=== PATIENT | male | born 1960 | race Caucasian/White ===

== ENCOUNTER 2020-01-03 05:37 | Inpatient (IN) | payer MEDICAID ==
[2020-01-03] VITALS (7 sets, daily range): BP systolic 135–155; BP diastolic 70–105
[~2020-01-03] VITALS: Ht 172.7 cm; Wt 76.2 kg
--- NOTE | 2020-01-03 05:40 | NUR ---
ED Nurse Note: pt presents to ed via [facility] from [facility] for SOB. Pt has trach and vent. PER EMS, pt had 400 mL of fluid suctioned at SNF. Pt rectal temp at triage 101.7. AAOx4, nonambulatory, nonverbal. ERMD at bedside, RT at bedside.
--- NOTE | 2020-01-03 05:44 | Emergency Room Report ---
History of Present Illness General Source: Medical Record, EMS (Froylan Rangel MD) Present Illness HPI This is a 59-year-old male with history of respiratory failure with tracheostomy. He presents with chief complaint of fever and respiratory distress. Per EMS, 911 was called because patient was hypoxic and had respiratory distress. Nursing staff suction him and there was copious amount of purulent secretion. Better after suctioning. Patient was placed on oxygen and brought here. He also had a fever. Onset today. No nausea vomiting or diarrhea. History is limited because of patient condition. (Froylan Rangel MD) Allergies: Coded Allergies: No Known Allergies (Unverified , 01/03/20) COVID-19 Screening Contact w/high risk pt: Yes Recent Travel to affected area: No Experienced COVID-19 symptoms?: Yes (Froylan Rangel MD) Patient History Past Medical History: see triage record, old chart reviewed Past Surgical History: other Pertinent Family History: none Social History: Denies: smoking Immunizations: other Reviewed Nursing Documentation: PMH: Agreed; PSxH: Agreed (Froylan Rangel MD) Review of Systems Constitutional: Reports: fever Eye: Denies: eye pain, blurred vision ENT: Denies: ear pain, nose congestion, throat swelling Respiratory: Reports: cough, shortness of breath Cardiovascular: Denies: chest pain, palpitations Gastrointestinal: Denies: abdominal pain, diarrhea, nausea, vomiting Musculoskeletal: Denies: back pain, joint pain Skin: Denies: rash Neurological: Denies: headache, numbness Endocrine: Denies: increased thirst, increased urine Hematologic/Lymphatic: Denies: easy bruising All Other Systems: negative except mentioned in HPI (Froylan Rangel MD) Physical Exam Vitals with fever Sp02 EP Interpretation: reviewed, abnormal General Appearance: well appearing, alert, moderate distress Head: normocephalic, atraumatic Eyes: bilateral eye PERRL, bilateral eye EOMI ENT: hearing grossly normal, normal pharynx Neck: full range of motion, supple, no meningismus Respiratory: chest non-tender, decreased breath sounds, accessory muscle use, rhonchi Cardiovascular #1: regular rate, rhythm, no murmur Gastrointestinal: normal bowel sounds, non tender, no mass, no organomegaly, no bruit, non-distended, other - G-tube Musculoskeletal: back normal, normal range of motion Psychiatric: mood/affect normal (Froylan Rangel MD) Medical Decision Making Diagnostic Impression: Primary Impression: Respiratory failure with hypoxia Qualified Codes: J96.21 - Acute and chronic respiratory failure with hypoxia Additional Impressions: Sepsis Qualified Codes: A41.9 - Sepsis, unspecified organism; R65.20 - Severe sepsis without septic shock; J96.01 - Acute respiratory failure with hypoxia HCAP (healthcare-associated pneumonia) Suspected COVID-19 virus infection UTI (urinary tract infection) Qualified Codes: N30.00 - Acute cystitis without hematuria ER Course Presents with respiratory distress secondary to pneumonia and sepsis. With fever and being [facility] patient, symptoms concerning for COVID-19 section. Culture sent for it. Wide spectrum antibiotics given. Will admit for further work-up. (Froylan Rangel MD) Laboratory Tests Test 01/03/20 05:55 01/03/20 06:00 Urine Color Yellow Urine Appearance Clear Urine pH 6 (4.5-8.0) Urine Specific Onyx 1.015 (1.005-1.035) Urine Protein 3+ (NEGATIVE) H Urine Glucose (UA) Negative (NEGATIVE) Urine Ketones 1+ (NEGATIVE) H Urine Blood 3+ (NEGATIVE) H Urine Nitrite Negative (NEGATIVE) Urine Bilirubin Negative (NEGATIVE) Urine Urobilinogen 1 MG/DL (0.0-1.0) H Urine Leukocyte Esterase 1+ (NEGATIVE) H Urine RBC 10-15 /HPF (0 - 0) H Urine WBC 5-10 /HPF (0 - 0) H Urine Squamous Epithelial Cells Few /LPF (NONE/OCC) Urine Amorphous Sediment Few /LPF (NONE) H Urine Bacteria Few /HPF (NONE) White Blood Count 46.9 K/UL (4.8-10.8) *H Red Blood Count 3.79 M/UL (4.70-6.10) L Hemoglobin 11.2 G/DL (14.2-18.0) L Hematocrit 33.2 % (42.0-52.0) L Mean Corpuscular Volume 88 FL (80-99) Mean Corpuscular Hemoglobin 29.6 PG (27.0-31.0) Mean Corpuscular Hemoglobin Concent 33.7 G/DL (32.0-36.0) Red Cell Distribution Width 13.1 % (11.6-14.8) Platelet Count 542 K/UL (150-450) H Mean Platelet Volume 5.5 FL (6.5-10.1) L Neutrophils (%) (Auto) % (45.0-75.0) Lymphocytes (%) (Auto) % (20.0-45.0) Monocytes (%) (Auto) % (1.0-10.0) Eosinophils (%) (Auto) % (0.0-3.0) Basophils (%) (Auto) % (0.0-2.0) Differential Total Cells Counted 100 Neutrophils % (Manual) 86 % (45-75) H Lymphocytes % (Manual) 3 % (20-45) L Monocytes % (Manual) 5 % (1-10) Eosinophils % (Manual) 1 % (0-3) Basophils % (Manual) 1 % (0-2) Band Neutrophils 4 % (0-8) Platelet Estimate Increased H Platelet Morphology Normal Sodium Level 141 MMOL/L (136-145) Potassium Level 3.9 MMOL/L (3.5-5.1) Chloride Level 102 MMOL/L (98-107) Carbon Dioxide Level 25 MMOL/L (21-32) Anion Gap 14 mmol/L (5-15) Blood Urea Nitrogen 18 mg/dL (7-18) Creatinine 0.8 MG/DL (0.55-1.30) Estimated Glomerular Filtration Rate > 60 mL/min (>60) Glucose Level 166 MG/DL (74-106) H Lactic Acid Level 1.70 mmol/L (0.4-2.0) Calcium Level 11.1 MG/DL (8.5-10.1) H Total Bilirubin 0.3 MG/DL (0.2-1.0) Aspartate Amino Transferase (AST) 13 U/L (15-37) L Alanine Aminotransferase (ALT) 19 U/L (12-78) Alkaline Phosphatase 105 U/L (46-116) Total Creatine Kinase 45 U/L (26-308) Creatine Kinase MB 0.8 NG/ML (0.0-3.6) Creatine Kinase MB Relative Index 1.7 Troponin I 0.021 ng/mL (0.000-0.056) Total Protein 8.4 G/DL (6.4-8.2) H Albumin 2.9 G/DL (3.4-5.0) L Globulin 5.5 g/dL Albumin/Globulin Ratio 0.5 (1.0-2.7) L Microbiology Date/Time Source Procedure Growth Status 01/03/20 06:00 Nasal Nares - Final Complete 01/03/20 06:00 Nasal Nares - Final Complete (Joshua Mullins MD) EKG Diagnostic Results Rate: tachycardiac Rhythm: NSR ST Segments: other - NSST changes (Froylan Rangel MD) Rhythm Strip Diag. Results EP Interpretation: yes Rate: 110 Rhythm: NSR, no PVC's, no ectopy (Froylan Rangel MD) Chest X-Ray Diagnostic Results Chest X-Ray Diagnostic Results : Chest X-Ray Ordered: Yes # of Views/Limited/Complete: 1 View Indication: Shortness of Breath EP Interpretation: Yes Interpretation: no consolidation, no effusion, no pneumothorax, other - Left -sided pulmonary congestion Impression: Other - Left-sided congestion/atelectasis Electronically Signed by: Electronically signed by Dr. Joshua Mullins (Joshua Mullins MD) Status: improved (Froylan Rangel MD) Reevaluation Time: 09:00 Reevaluation Impression Labs show significantly elevated white count with neutrophil predominance and lymphopenia. Patient receiving broad-spectrum antibiotics. No obvious consolidation on chest x-ray however there is atelectasis and pulmonary congestion. Chemistry largely within normal limits, lactate within normal limits. Urine concerning for an acute urinary tract infection. Will admit to her PMD, Dr. Pereira, with respiratory isolation precautions. (Joshua Mullins MD) Disposition: ADMITTED INPATIENT Condition: Serious Froylan Rangel MD Jan 03, 2020 05:44 Joshua Mullins MD Jan 03, 2020 13:49
[2020-01-03] MEDS ORDERED: Cefepime HCl 1 GM in D5W 55 ML IVPB ONE (05:45)
[2020-01-03] MEDS ORDERED: Acetaminophen 500mg (ES) tab ORAL ONE (05:45)
[2020-01-03] MEDS ORDERED: Albuterol ud Inhalation HHN ONE (05:45)
--- NOTE | 2020-01-03 05:50 | NUR ---
Rickey gonzalez in EDM - 01/03/20 at 0617 by [email or web address] ED Nurse Note: rt at bedside for xr
--- NOTE | 2020-01-03 05:50 | NUR ---
ED Nurse Note: rt at bedside for vent placement.
--- NOTE | 2020-01-03 06:00 | NUR ---
ED Nurse Note: blood, urine, flu swab, covid swab collected and sent to lab
[2020-01-03 06:08] LABS: HEMATOCRIT 33.2 % (42.0-52.0); HEMOGLOBIN 11.2 G/DL (14.2-18.0); MEAN CORPUSCULAR VOLUME 88 FL (80-99); PLATELET COUNT 542 K/UL (150-450); RED BLOOD COUNT 3.79 M/UL (4.70-6.10); RED CELL DISTRIBUTION WIDTH 13.1 % (11.6-14.8)
--- NOTE | 2020-01-03 06:10 | NUR ---
ED Nurse Note: xr at bedside
[2020-01-03] MEDS ORDERED: ASPIR 8181 MG GT (06:15)
[2020-01-03 06:18] LABS: ANION GAP 14 mmol/L (5-15); BLOOD UREA NITROGEN 18 mg/dL (7-18); CALCIUM 11.1 MG/DL (8.5-10.1); CARBON DIOXIDE 25 MMOL/L (21-32); CHLORIDE 102 MMOL/L (98-107); CREATININE 0.8 MG/DL (0.55-1.30); POTASSIUM 3.9 MMOL/L (3.5-5.1); SODIUM 141 MMOL/L (136-145)
[2020-01-03] MEDS ORDERED: TYLENOL EXTRA500 MG GT ×2 (06:19→09:50)
[2020-01-03] MEDS ORDERED: ATROVENT HFA12.9 GM IH (06:19)
[2020-01-03] MEDS ORDERED: ATORVASTATIN CA20 MG GT (06:19)
[2020-01-03] MEDS ORDERED: CLOZAPINE200 MG GT (06:19)
[2020-01-03] MEDS ORDERED: ATROPINE 0.1 MG/ML BC (06:19)
[2020-01-03] MEDS ORDERED: COLACE100 MG GT (06:19)
[2020-01-03] MEDS ORDERED: CHOLECALCIFEROL1 G1 GT (06:19)
[2020-01-03] MEDS ORDERED: VALPROIC A250 MG/5 M PO (06:19)
[2020-01-03 06:23] LABS: WHITE BLOOD COUNT 46.9 K/UL (4.8-10.8)
[2020-01-03 06:31] LABS: ALANINE AMINOTRANSFERASE 19 U/L (12-78); ALBUMIN 2.9 G/DL (3.4-5.0); ALBUMIN/GLOBULIN RATIO 0.5 (1.0-2.7); ALKALINE PHOSPHATASE 105 U/L (46-116); ASPARTATE AMINO TRANSFERASE 13 U/L (15-37); BILIRUBIN,TOTAL 0.3 MG/DL (0.2-1.0); CKMB 0.8 NG/ML (0.0-3.6); CREATINE KINASE 45 U/L (26-308)
[2020-01-03 06:43] LABS: APPEARANCE,URINE CLEAR; BILIRUBIN, URINE NEGATIVE (NEGATIVE); GLUCOSE, URINE (UA) NEGATIVE (NEGATIVE); KETONES,URINE 1+ (NEGATIVE); LEUKOCYTE ESTERASE ,URINE 1+ (NEGATIVE); NITRITE,URINE NEGATIVE (NEGATIVE); PH,URINE 6 (4.5-8.0); PROTEIN,URINE 3+ (NEGATIVE); UROBILINOGEN,URINE 1 MG/DL (0.0-1.0)
[2020-01-03 06:54] LABS: COLOR,URINE YELLOW
--- NOTE | 2020-01-03 07:14 | NUR ---
HAND-OFF: Report given to Amee SMITH. Endorsed plan of care
--- NOTE | 2020-01-03 07:30 | NUR ---
RESPIRATORY NOTE: Changed the vent settings to AC 16-600ml-40%FiO2- peep 5 due to resp distress. Pt was retracting/ labored/ abdominal breathing on SIMV 10-600ml-40%- peep 5. Pt is calming down, tolerating well with the new settings.No resp distress after vent changed. RN Amee made aware. Will continue to monitor.
[2020-01-03] MEDS ORDERED: VALPROIC A250 MG/5 M GT (09:50)
[2020-01-03] MEDS ORDERED: CLOZAPINE200 MG PO (09:50)
--- NOTE | 2020-01-03 10:32 | Diagnostic Imaging Report ---
Indication: Dyspnea Comparison: None A single view chest radiograph was obtained. Findings: Mild platelike atelectasis demonstrated at the left lung base. Heart size is normal. Lung volumes are low. Tracheostomy noted. Bones are osteopenic. IMPRESSION: Minimal left basal atelectasis.
[2020-01-03] MEDS ORDERED: Acetaminophen 500mg (ES) tab ORAL PRN (11:00)
--- NOTE | 2020-01-03 13:06 | NUR ---
*-* INSURANCE *-* [facility] NCM:MARICEL P: [phone] EXT. [id number] F: [phone] Addendum: 01/06/20 at 0923 by BRANDY ALVAREZ CM REF# [id number]
--- NOTE | 2020-01-03 13:08 | NUR ---
*-* PLEASE CALL INSURANCE COMPANY ONCE COVID 19 RESULTS ARE IN THEY NEED TO REPORT IT TO THE STATE *-*
--- NOTE | 2020-01-03 17:36 | NUR ---
ED Nurse Note: Report given to Zuly SMITH.
--- NOTE | 2020-01-03 18:55 | NUR ---
NEW ADMISSION, RECVD PT Pt arrived via hospital bed. RT placed trach pt on Vent. Vent Setting are ordered by Dr Pereira, Pt came from [facility] and was swabbed by ER. Swabs pending. Pt has Right AC 20g SL. Admitting Dr michael Pereira and Dx: PNA. VS upon arrival 164/74, HR 120, RR 16, 98% on mechanical ventilator. Upon transferring pt, pt has large bowel movement, no diarrhea, PT abdomen looks distended and pt has G tube that is clamped. threat monitoring analyst was placed on pt, tech notified. Pt had an episode of coffee ground emesis. Will endorse admission to [facility] RN
[2020-01-04] VITALS: BP 144/93
--- NOTE | 2020-01-04 01:25 | Diagnostic Imaging Report ---
EXAM: XR Chest, 1 View CLINICAL HISTORY: COUGH TECHNIQUE: Frontal view of the chest. COMPARISON: 01/03/2020. FINDINGS: Lungs: There is decreased inspiratory effort with clear right lung parenchyma. There is subtle density suggestive of infiltrate with superimposed atelectasis within the lingular lobe, slightly improving in the interval. Remainder of the lung jesus are clear. Pleural space: Unremarkable. No pneumothorax. Heart: Unremarkable. No cardiomegaly. Mediastinum: Unremarkable. Bones/joints: Degenerative disease of the spine. Tubes, lines and devices: There is an endotracheal tube with the tip 4 cm above elisabeth. Upper abdomen: Abundant fecal debris in the colon which may indicate constipation. IMPRESSION: Slightly improved the infiltrate within the lingular lobe.
[2020-01-04 04:00] VITALS: BP 138/78
[2020-01-04] MEDS ORDERED: Cefepime HCl 1 GM in D5W 55 ML IVPB SCH (06:00)
--- NOTE | 2020-01-04 07:14 | Pulmonolgy Critical Care Note ---
Critical Care - Asmt/Plan Problems: (1) Sepsis (2) HCAP (healthcare-associated pneumonia) (3) Suspected COVID-19 virus infection (4) Chronic respiratory failure (5) Paraplegia (6) Feeding by G-tube Respiratory: monitor respiratory rate, adjust FIO2, CXR Cardiac: continue to monitor HR/BP Renal: F/U I&O, decrease IV fluid - to 50 cc/hour Infectious Disease: check cultures, continue antibiotics Gastrointestinal: start feedings Endocrine: monitor blood sugar Hematologic: monitor H/H, transfuse if hgb<8.5 Neurologic: keep patient comfortable Disposition: keep in ICU Notes Reviewed: other - ER and paramedics note. Discussed with: rn case mgrbiodiesel product manager - Objective Last 24 Hour Vital Signs Date Time Temp Pulse Resp B/P (MAP) Pulse Ox O2 Delivery O2 Flow Rate FiO2 01/04/20 05:24 101 25 40 01/04/20 04:00 40 01/04/20 04:00 98.9 102 20 138/78 (98) 96 01/04/20 04:00 102 01/04/20 03:25 102 16 40 01/04/20 01:16 106 20 40 01/04/20 00:00 40 01/04/20 00:00 105 01/04/20 00:00 99.3 105 21 144/93 (110) 95 01/03/20 23:52 104 16 40 01/03/20 21:00 105 19 40 01/03/20 20:08 Mechanical Ventilator 01/03/20 20:00 99.0 108 19 155/105 (122) 98 01/03/20 20:00 104 01/03/20 19:17 112 14 40 01/03/20 18:07 101.0 72 18 13/72 100 Mechanical Ventilator 40 01/03/20 17:37 101.0 81 16 135/76 100 Mechanical Ventilator 40 01/03/20 17:15 100 16 40 01/03/20 15:04 106 24 40 01/03/20 14:10 101.9 87 16 147/77 100 Mechanical Ventilator 40 01/03/20 12:30 104 25 40 01/03/20 12:05 101.9 80 16 143/72 100 Mechanical Ventilator 40 01/03/20 10:43 104 29 40 01/03/20 10:00 101.9 89 16 137/78 100 Mechanical Ventilator 40 01/03/20 08:40 107 23 40 01/03/20 07:43 101.9 82 14 149/70 100 Mechanical Ventilator 40 01/03/20 07:30 103 24 40 Status: awake Condition: critical, grave HEENT: atraumatic Neck: full ROM Heart: HR/BP stable, regular Abdomen: non-tender, active bowel sounds Extremities: no C/C/E Micro: Microbiology Date/Time Source Procedure Growth Status 01/03/20 06:00 Nasal Nares - Final Complete 01/03/20 06:00 Nasal Nares - Final Complete 01/03/20 05:35 Rectum Received Critical Care - Subjective ROS Limited/Unobtainable: Yes Interval Events: 59-year-old male with history of chronic respiratory failure with tracheostomy, PEG, paraplegia, [facility] resident presented with chief complaint of fever and respiratory distress. patient was hypoxic and had respiratory distress. Nursing staff suction him and there was copious amount of purulent secretion. Better after suctioning. Patient was placed on oxygen and brought here. He also had a fever. Onset today. Initial CXR was negative for any infiltrate, but his WBC was 49 on admission. Condition: critical FI02: 40 Vent Support Breath Rate: 16 Vent Support Mode: AC Vent Tidal Volume: 600 Sputum Amount: Moderate PEEP: 5.0 PIP: 15 CXR: trach in place. LYRIC Labs: Laboratory Tests Test 01/04/20 05:30 White Blood Count Pending Red Blood Count Pending Hemoglobin Pending Hematocrit Pending Mean Corpuscular Volume Pending Mean Corpuscular Hemoglobin Pending Mean Corpuscular Hemoglobin Concent Pending Red Cell Distribution Width Pending Platelet Count Pending Mean Platelet Volume Pending Neutrophils (%) (Auto) Pending Lymphocytes (%) (Auto) Pending Monocytes (%) (Auto) Pending Eosinophils (%) (Auto) Pending Basophils (%) (Auto) Pending Prothrombin Time Pending Prothromb Time International Ratio Pending Activated Partial Thromboplast Time Pending Sodium Level Pending Potassium Level Pending Chloride Level Pending Carbon Dioxide Level Pending Blood Urea Nitrogen Pending Creatinine Pending Estimat Glomerular Filtration Rate Pending Glucose Level Pending Calcium Level Pending Aspartate Amino Transf (AST/SGOT) Pending Alanine Aminotransferase (ALT/SGPT) Pending Pro-B-Type Natriuretic Peptide Pending Pola Goode MD Jan 04, 2020 07:14
[2020-01-04 07:29] LABS: ANION GAP 11 mmol/L (5-15); ASPARTATE AMINO TRANSFERASE 15 U/L (15-37); BLOOD UREA NITROGEN 21 mg/dL (7-18); CALCIUM 10.6 MG/DL (8.5-10.1); CARBON DIOXIDE 25 MMOL/L (21-32); CHLORIDE 103 MMOL/L (98-107); CREATININE 0.5 MG/DL (0.55-1.30); POTASSIUM 3.2 MMOL/L (3.5-5.1); SODIUM 139 MMOL/L (136-145)
[2020-01-04 07:30] LABS: HEMATOCRIT 27.9 % (42.0-52.0); HEMOGLOBIN 9.8 G/DL (14.2-18.0); MEAN CORPUSCULAR VOLUME 87 FL (80-99); PLATELET COUNT 430 K/UL (150-450); RED BLOOD COUNT 3.19 M/UL (4.70-6.10); RED CELL DISTRIBUTION WIDTH 12.9 % (11.6-14.8)
--- NOTE | 2020-01-04 07:30 | NUR ---
NURSE NOTES: Received report from Lee SMITH.
[2020-01-04 07:34] LABS: ALANINE AMINOTRANSFERASE 14 U/L (12-78)
[2020-01-04 07:43] LABS: WHITE BLOOD COUNT 34.4 K/UL (4.8-10.8)
[2020-01-04 07:49] LABS: INR 1.2 (0.9-1.1)
[2020-01-04 08:00] VITALS: BP 159/90
[2020-01-04] MEDS: Valproic Acid 250mg/5ml Liquid GT SCH (08:58)
--- NOTE | 2020-01-04 09:00 | NUR ---
NURSE NOTES: Pt. in bed, awake, alert, mouthing words. Pt. using pen/paper to be able to communicate. Pt. wrote he likes "soda", told him we are going to ask for S.T to see him first. For now he is NPO. No sign of distress. On mech. vent. AC16/VT600/Fi O2 40%/P5. IV at left AC #20g. in placed patent/intact running NS at 50cc/hr. Bed in low position, locked. Call light within reach. Will cont. to monitor.
--- NOTE | 2020-01-04 13:27 | NUR ---
NURSE NOTES: Called Dr. Goode and left a message regarding K+ 3.2 awaiting for response.
[2020-01-04 16:00] VITALS: BP 146/92
--- NOTE | 2020-01-04 16:08 | NUR ---
NURSE NOTES: Called Dr. Pereira and left message regarding his K+ 3.2 awaiting for response.
--- NOTE | 2020-01-04 16:22 | Infectious Diseases Prog Note ---
Subjective Allergies: Coded Allergies: No Known Allergies (Unverified , 01/03/20) Subjective # [id number] Objective Vital Signs Last 24 Hour Vital Signs Date Time Temp Pulse Resp B/P (MAP) Pulse Ox O2 Delivery O2 Flow Rate FiO2 01/04/20 15:25 100 16 40 01/04/20 13:25 98 17 40 01/04/20 12:00 40 01/04/20 11:40 105 01/04/20 10:56 99 17 40 01/04/20 10:22 100 16 40 01/04/20 09:00 Mechanical Ventilator 01/04/20 08:00 97.8 99 20 159/90 (113) 96 01/04/20 08:00 40 01/04/20 07:48 100 01/04/20 06:59 102 22 40 01/04/20 05:24 101 25 40 01/04/20 04:00 40 01/04/20 04:00 98.9 102 20 138/78 (98) 96 01/04/20 04:00 102 01/04/20 03:25 102 16 40 01/04/20 01:16 106 20 40 01/04/20 00:00 40 01/04/20 00:00 105 01/04/20 00:00 99.3 105 21 144/93 (110) 95 01/03/20 23:52 104 16 40 01/03/20 21:00 105 19 40 01/03/20 20:08 Mechanical Ventilator 01/03/20 20:00 99.0 108 19 155/105 (122) 98 01/03/20 20:00 104 01/03/20 19:17 112 14 40 01/03/20 18:07 101.0 72 18 13/72 100 Mechanical Ventilator 40 01/03/20 17:37 101.0 81 16 135/76 100 Mechanical Ventilator 40 01/03/20 17:15 100 16 40 Height (Feet): 5 Height (Inches): 8.00 Weight (Pounds): 170 Microbiology Date/Time Source Procedure Growth Status 01/03/20 06:00 Nasal Nares - Final Complete 01/03/20 06:00 Nasal Nares - Final Complete 01/03/20 05:35 Rectum Received Laboratory Tests Test 01/04/20 05:30 White Blood Count 34.4 K/UL (4.8-10.8) *H Red Blood Count 3.19 M/UL (4.70-6.10) L Hemoglobin 9.8 G/DL (14.2-18.0) L Hematocrit 27.9 % (42.0-52.0) L Mean Corpuscular Volume 87 FL (80-99) Mean Corpuscular Hemoglobin 30.6 PG (27.0-31.0) Mean Corpuscular Hemoglobin Concent 35.1 G/DL (32.0-36.0) Red Cell Distribution Width 12.9 % (11.6-14.8) Platelet Count 430 K/UL (150-450) Mean Platelet Volume 5.4 FL (6.5-10.1) L Neutrophils (%) (Auto) % (45.0-75.0) Lymphocytes (%) (Auto) % (20.0-45.0) Monocytes (%) (Auto) % (1.0-10.0) Eosinophils (%) (Auto) % (0.0-3.0) Basophils (%) (Auto) % (0.0-2.0) Differential Total Cells Counted 100 Neutrophils % (Manual) 90 % (45-75) H Lymphocytes % (Manual) 8 % (20-45) L Monocytes % (Manual) 2 % (1-10) Eosinophils % (Manual) 0 % (0-3) Basophils % (Manual) 0 % (0-2) Band Neutrophils 0 % (0-8) Platelet Estimate Adequate Platelet Morphology Normal Hypochromasia 1+ Prothrombin Time 12.6 SEC (9.30-11.50) H Prothromb Time International Ratio 1.2 (0.9-1.1) H Activated Partial Thromboplast Time 34 SEC (23-33) H Sodium Level 139 MMOL/L (136-145) Potassium Level 3.2 MMOL/L (3.5-5.1) L Chloride Level 103 MMOL/L (98-107) Carbon Dioxide Level 25 MMOL/L (21-32) Anion Gap 11 mmol/L (5-15) Blood Urea Nitrogen 21 mg/dL (7-18) H Creatinine 0.5 MG/DL (0.55-1.30) L Estimat Glomerular Filtration Rate > 60 mL/min (>60) Glucose Level 108 MG/DL (74-106) H Calcium Level 10.6 MG/DL (8.5-10.1) H Aspartate Amino Transf (AST/SGOT) 15 U/L (15-37) Alanine Aminotransferase (ALT/SGPT) 14 U/L (12-78) Pro-B-Type Natriuretic Peptide 493 pg/mL (0-125) H Current Medications Medications (Trade) Dose Ordered Sig/Emmanuelle Route PRN Reason Start Time Stop Time Status Last Admin Dose Admin Acetaminophen (Tylenol) 500 mg Q6H PRN ORAL Mild Pain/Temp > 100.5 01/03/20 11:00 02/02/20 10:59 Cefepime HCl 1 gm/ Dextrose 55 ml @ 110 mls/hr Q12H IVPB 01/04/20 18:00 01/11/20 17:59 Clozapine (Clozaril) 200 mg DAILY ORAL 01/04/20 09:00 01/11/20 08:59 01/04/20 08:58 Levofloxacin 100 ml @ 100 mls/hr Q24H IVPB 01/04/20 06:00 01/11/20 05:59 01/04/20 06:00 Sodium Chloride 1,000 ml @ 50 mls/hr Q20H IV 01/04/20 08:00 02/03/20 07:59 01/04/20 08:58 Valproic Acid (Depakene) 250 mg DAILY GT 01/04/20 09:00 02/03/20 08:59 01/04/20 08:58 Tarik Murdock MD Jan 04, 2020 16:22
--- NOTE | 2020-01-04 18:20 | NUR ---
NURSE NOTES: Received T.O from Dr. Pereira for K+ 40meq x 1 via GT and BMP in AM.
[2020-01-04] MEDS: Vancomycin 1gm/D5W 275ml IVPB SCH ×2 (18:37)
[2020-01-04] MEDS: Cefepime HCl 1 GM in D5W 55 ML IVPB SCH (18:39)
--- NOTE | 2020-01-04 19:39 | NUR ---
HAND-OFF: Report given to Corey SMITH. Pt. remain stable.
[2020-01-04 20:00] VITALS: BP 135/85
--- NOTE | 2020-01-04 20:00 | NUR ---
NURSE NOTES: SBAR from Missy SMITH. Patient AAOX3-4 able to mouth words. Pt. using pen/paper to be able to communicate. Patient is receiving Jevity at 30ml/hr via GT. No sign of distress. On mech. vent. Portex 8. AC16/VT600/Fi O2 40%/P5. IV at left AC #20g. in placed patent/intact running NS at 50cc/hr. Bed in low position, locked. Call light within reach. Will cont. to monitor
--- NOTE | 2020-01-04 23:45 | Consultation ---
DATE OF CONSULTATION: 01/04/2020 INFECTIOUS DISEASE CONSULT CONSULTING PHYSICIAN: Tarik Murdock M.D. REFERRING PHYSICIAN: Dr. Goode. REASON FOR CONSULTATION: Evaluation of the patient for pneumonia, rule out COVID-19. HISTORY OF PRESENT ILLNESS: The patient is a 59-year-old unfortunate male with multiple medical problems, who was transferred to this medical center due to respiratory distress and hypoxemia. The patient was admitted with impression of pneumonia and rule out probable COVID-19. The patient has been started on IV antibiotics. Infectious disease consultation has been requested for further evaluation of the patient and antibiotic management. PAST MEDICAL HISTORY: 1. Paraplegia. 2. History of ventilator-dependent respiratory failure. 3. Status post trach, status post PEG. ALLERGIES: No known drug allergies. SOCIAL HISTORY: The patient lives in [facility]. MEDICATION: Intravenous cefepime and Levaquin. FAMILY HISTORY: Not contributing. REVIEW OF SYSTEMS: Limited. Much of the information I was able to gather as mentioned above. PHYSICAL EXAMINATION: VITAL SIGNS: Temperature 101.9 at the time of admission, blood pressure 159/90. HEENT: No pale conjunctivae. No icterus. NECK: No lymphadenopathy. CHEST: Coarse breathing sounds. HEART: S1 and S2. ABDOMEN: Soft. EXTREMITY: No cyanosis at this time. SKIN: No rash. LABORATORY AND DIAGNOSTIC DATA: White blood cells 34, hemoglobin 9.8, platelets 430. UA, 5 to 10 white blood cells. BUN 31 and creatinine 0.1. ALT, AST, and alkaline phosphatase unremarkable. Chest x-ray shows suggestive of pneumonia, slight atelectasis of the left base. ASSESSMENT: The patient is a 59-year-old male with: 1. Sepsis. 2. Pneumonia. 3. Fever. 4. Leukocytosis. 5. Rule out probable COVID-19. 6. Rule out probable urinary tract infection. PLAN: 1. We will continue the patient on Levaquin and cefepime, add vancomycin. 2. Monitor CBC. 3. Monitor BMP. 4. Monitor cultures (blood, urine, sputum). 5. Monitor chest x-ray. 6. COVID-19. 7. Based on the patient's clinical course and labs, we will do further recommendations. Thank you, Dr. Goode, for allowing me to participate in the care of this patient. I will follow the patient with you during this hospitalization. Tarik Murdock M.D. DR: STEVEN JOB#: [id number] CC:
[2020-01-05] VITALS: BP 129/75
--- NOTE | 2020-01-05 | NUR ---
NURSE NOTES: Patient remains in bed and afebrile. Latest temperature was 99.3F (ax). Patient remains calm and collective. Vitals have been stable, no feed residuals. Condom catheter placed. Will continue to monitor.
--- NOTE | 2020-01-05 02:45 | Progress Note ---
DATE: 01/04/2020 SUBJECTIVE: The patient is afebrile and hemodynamically stable with borderline tachycardia. PHYSICAL EXAMINATION: VITAL SIGNS: Blood pressure is 146/92. His pulse is 97, respirations are 16, and temperature 98.2. HEENT: Eyes were normal. ENT, mucous membranes were moist and intact. NECK: Supple with no JVD without lymph nodes. Tracheostomy site is clean. LUNGS: Clear without rhonchi, rales, or wheezing. HEART: Normal sounds with regular beats. ABDOMEN: Soft and nontender with normal bowel sounds. EXTREMITIES: Warm without cyanosis, clubbing, or edema. LABORATORY AND DIAGNOSTIC DATA: His hemoglobin is 9.8, hematocrit 27.9 with MCV of 87, WBC of 34.4, and platelets are 430. His BUN and creatinine are 21 and 0.5 respectively. His sodium is 139, potassium is 3.2, chloride 103, CO2 is 25. His potassium was 40 mEq via G-tube twice a day. His calcium is 10.6. His PTT was 34, his INR was 1.2. Urinalysis for today was canceled. The patient has 10 to 15 RBCs and 5 to 10 WBCs in the urine of 01/03/2020. The patient had chest x-ray today, which revealed an improvement of the pneumonia in the left lingular lobe. as well. IMPRESSION: The patient has leukocytosis, suspected of having carter virus infection. Laboratory test for carter is unavailable as yet. He is currently on cefepime 1 g IV piggyback q.12, vancomycin 1 g IV piggyback q.12 and levofloxacin 750 mg IV piggyback q.24 hours. Repeat laboratory tests will be done in the a.m. Cheryl Pereira M.D. DR: Tess JOB#: [id number] CC:
--- NOTE | 2020-01-05 03:00 | NUR ---
NURSE NOTES: Patient repositioned, Vitals remains stable at this time. No acute distress at this time. Patient remains clean and dry. No new changes
[2020-01-05 04:00] VITALS: BP 117/63
[2020-01-05] MEDS: Cefepime HCl 1 GM in D5W 55 ML IVPB SCH ×2 (04:15→17:29)
[2020-01-05] MEDS: Vancomycin 1gm/D5W 275ml IVPB SCH ×4 (04:16→17:28)
--- NOTE | 2020-01-05 06:00 | NUR ---
NURSE NOTES: Sponge bath given. Urine and sputum cultures collected and sent to lab, along with AM blood labs. Patient remains stable at this time.
--- NOTE | 2020-01-05 06:48 | NUR ---
RESPIRATORY NOTE: Received pt on current vent settings: AC 16-600ml-40%-peep 5. Pt is awake, alert and able to follow commands with no signs of resp distress. Pt is trach with portex cuffed 8, secured via trach tie/ trach guard. Alarms are set and audible, spare trach kit and ambu bag at bedside. Vent is plugged into the red oultet. will cont to monitor throughout the day.
--- NOTE | 2020-01-05 06:50 | Pulmonolgy Critical Care Note ---
Critical Care - Asmt/Plan Problems: (1) Sepsis (2) HCAP (healthcare-associated pneumonia) (3) Suspected COVID-19 virus infection (4) Chronic respiratory failure (5) Paraplegia (6) Feeding by G-tube Respiratory: monitor respiratory rate, adjust FIO2, ABG Renal: F/U I&O Infectious Disease: check cultures Gastrointestinal: continue feedings/current rate Endocrine: monitor blood sugar Hematologic: monitor H/H Neurologic: PRN Morphine Affect: PRN ativan Prophylaxis: Heparin Notes Reviewed: squilgeer, ID Discussed with: nurses, consultants Critical Care - Objective Last 24 Hour Vital Signs Date Time Temp Pulse Resp B/P (MAP) Pulse Ox O2 Delivery O2 Flow Rate FiO2 01/05/20 05:01 97 18 40 01/05/20 04:00 40 01/05/20 04:00 98.5 102 18 117/63 (81) 97 01/05/20 03:39 98 01/05/20 01:18 89 26 40 01/05/20 00:00 99.2 106 22 129/75 (93) 96 01/05/20 00:00 40 01/05/20 00:00 101 01/04/20 23:50 99 19 40 01/04/20 21:06 96 18 40 01/04/20 21:00 Mechanical Ventilator 01/04/20 20:00 40 01/04/20 20:00 102 01/04/20 20:00 98.4 100 18 135/85 (102) 100 01/04/20 19:32 104 18 40 01/04/20 17:17 97 16 40 01/04/20 16:00 40 01/04/20 16:00 98.2 105 18 146/92 (110) 96 01/04/20 15:38 105 01/04/20 15:25 100 16 40 01/04/20 13:25 98 17 40 01/04/20 12:00 40 01/04/20 11:40 105 01/04/20 10:56 99 17 40 01/04/20 10:22 100 16 40 01/04/20 09:00 Mechanical Ventilator 01/04/20 08:00 97.8 99 20 159/90 (113) 96 01/04/20 08:00 40 01/04/20 07:48 100 01/04/20 06:59 102 22 40 Status: awake Condition: critical, improving HEENT: atraumatic Neck: full ROM, trach Heart: HR/BP stable Abdomen: non-tender, active bowel sounds, feeding tube Extremities: no C/C/E, edema Micro: Microbiology Date/Time Source Procedure Growth Status 01/03/20 05:55 Blood Blood Culture - Preliminary NO GROWTH AFTER 24 HOURS Resulted 01/03/20 05:40 Blood Blood Culture - Preliminary NO GROWTH AFTER 24 HOURS Resulted 01/03/20 06:00 Nasal Nares - Final Complete 01/03/20 06:00 Nasal Nares - Final Complete 01/03/20 05:35 Rectum VRE Culture - Final Enterococcus Faecalis - Vre Complete Critical Care - Subjective ROS Limited/Unobtainable: Yes EKG Rhythm: Sinus Rhythm FI02: 40 Vent Support Breath Rate: 16 Vent Support Mode: AC Vent Tidal Volume: 600 Sputum Amount: Scant PEEP: 5.0 PIP: 19 Tube Feeding Amount: 30 I&O: Intake and Output 01/04/20 01/05/20 19:00 07:00 Intake Total 1160 ml 1360 ml Output Total 1000 ml Balance 1160 ml 360 ml Free Water 200 ml 300 ml IV Total 600 ml 730 ml Tube Feeding 360 ml 330 ml Output Urine Total 1000 ml Labs: Laboratory Tests Test 01/05/20 04:00 White Blood Count Pending Red Blood Count Pending Hemoglobin Pending Hematocrit Pending Mean Corpuscular Volume Pending Mean Corpuscular Hemoglobin Pending Mean Corpuscular Hemoglobin Concent Pending Red Cell Distribution Width Pending Platelet Count Pending Mean Platelet Volume Pending Neutrophils (%) (Auto) Pending Lymphocytes (%) (Auto) Pending Monocytes (%) (Auto) Pending Eosinophils (%) (Auto) Pending Basophils (%) (Auto) Pending Erythrocyte Sedimentation Rate Pending Sodium Level Pending Potassium Level Pending Chloride Level Pending Carbon Dioxide Level Pending Blood Urea Nitrogen Pending Creatinine Pending Estimat Glomerular Filtration Rate Pending Glucose Level Pending Calcium Level Pending Phosphorus Level Pending Magnesium Level Pending Total Bilirubin Pending Aspartate Amino Transf (AST/SGOT) Pending Alanine Aminotransferase (ALT/SGPT) Pending Alkaline Phosphatase Pending C-Reactive Protein, Quantitative Pending Total Protein Pending Albumin Pending Globulin Pending Pola Goode MD Jan 05, 2020 06:50
--- NOTE | 2020-01-05 06:56 | NUR ---
HAND-OFF: Report given to Yao SMITH.
[2020-01-05 07:09] LABS: HEMATOCRIT 29.1 % (42.0-52.0); HEMOGLOBIN 9.8 G/DL (14.2-18.0); MEAN CORPUSCULAR VOLUME 90 FL (80-99); PLATELET COUNT 388 K/UL (150-450); RED BLOOD COUNT 3.24 M/UL (4.70-6.10)
--- NOTE | 2020-01-05 07:27 | NUR ---
NURSE NOTES: Received updated report from Bar SMITH.
[2020-01-05 08:00] VITALS: BP 135/80
[2020-01-05] MEDS: Valproic Acid 250mg/5ml Liquid GT SCH (08:25)
[2020-01-05 08:43] LABS: ALANINE AMINOTRANSFERASE 19 U/L (12-78); ALBUMIN 2.2 G/DL (3.4-5.0); ALBUMIN/GLOBULIN RATIO 0.4 (1.0-2.7); ALKALINE PHOSPHATASE 97 U/L (46-116); ANION GAP 16 mmol/L (5-15); ASPARTATE AMINO TRANSFERASE 19 U/L (15-37); BILIRUBIN,TOTAL 0.2 MG/DL (0.2-1.0); BLOOD UREA NITROGEN 18 mg/dL (7-18); CALCIUM 9.9 MG/DL (8.5-10.1); CARBON DIOXIDE 20 MMOL/L (21-32); CHLORIDE 103 MMOL/L (98-107); CREATININE 0.5 MG/DL (0.55-1.30); PHOSPHORUS 3.5 MG/DL (2.5-4.9); POTASSIUM 3.4 MMOL/L (3.5-5.1); SODIUM 139 MMOL/L (136-145)
--- NOTE | 2020-01-05 09:00 | NUR ---
NURSE NOTES: Pt. in bed, awake. A/O x 2-3. Mouthing words. On mech vent. AC16/VT600/Fi O2 at 40%/P5. No s/sx of distress. No grimacing noted. IV at right AC #20g. and right FA #22g. in placed running NS at 50cc/hr. Call light within reach. Will cont. to monitor.
--- NOTE | 2020-01-05 11:00 | NUR ---
RD ASSESSMENT & RECOMMENDATIONS SEE CARE ACTIVITY FOR COMPLETE ASSESSMENT DAILY ESTIMATED NEEDS: Needs based on sepsis, critical care 81.4kg abw 20-30 kcals/kg 0920-4495 total kcals 1.2-2 g protein/kg 98-163 g total protein 25-30 mL/kg 1124-1960 total fluid mLs NUTRITION DIAGNOSIS: Swallowing difficulty r/t resp status as evidenced by pt is trach dep, PEG dep. CURRENT TF: Jevity 1.2 @30 ml/hr ENTERAL NUTRITION RECOMMENDATIONS: Rec to increase current TF to goal of JEVITY 1.2 @65ml/hr x24 hrs to provide 1560ml, 1872 kcal, 87g pro, 1259ml free H2O - Rec to INCREASE TF goal as able by 10ml/hr q4-6 hrs to goal of 65ml/hr x24 hrs - Add PROSOURCE BID to better meet est pro needs - Flush per MD/ HOB over 30 degrees ADDITIONAL RECOMMENDATIONS: 1) Monitor BG; need for formula change 2) WATERWORKS PUMP STATION OPERATOR eval prior to oral grat 3) Per SNF: HT- 5'10" and [id number]# 4) F/up w/ wound eval 5) Replete lytes (low K, low Mg)
--- NOTE | 2020-01-05 11:23 | NUR ---
NURSE NOTES: Called Dr. Pereira regarding pt K+ 3.4 and magnesium level 1.6 awaiting for response.
[2020-01-05 12:00] VITALS: BP 134/90
[2020-01-05 12:18] LABS: WHITE BLOOD COUNT 22.4 K/UL (4.8-10.8)
[2020-01-05 16:00] VITALS: BP 133/91
--- NOTE | 2020-01-05 19:20 | NUR ---
HAND-OFF: Report given to Jesus SMITH. pt. remain stable.
--- NOTE | 2020-01-05 19:21 | NUR ---
NURSE NOTES: Received patient from SARAH Bashir. Patient is aaox 4, vss, on cardiac cath technician, with no acute distress. Patient is cooperative, clean, and asked me how I was. Vent setting AC 16, TV 600, Fia2 40%, and peep of 5. G-tube in place and running Jevity 1.2 at 30mL/hr. Patient has sacral redness, IV on right AC20g and right forearm 22g. Bed at its lowest position, call light i reach and x3 bed rails are up. Will continue to monitor.
[2020-01-05 20:00] VITALS: BP 137/89
--- NOTE | 2020-01-05 22:56 | NUR ---
NURSE NOTES: Called and left a message for Dr. Goode for ventilator setting. Will wait for call back.
[2020-01-06] VITALS: BP 129/84
--- NOTE | 2020-01-06 01:15 | NUR ---
NURSE NOTES: Spoke to Dr. Pereira about the ventilator setting and he stated to continue current setting.
--- NOTE | 2020-01-06 03:07 | NUR ---
NURSE NOTES: Patient is resting well with no complaints and smiling as he greets me. Blood draw pulled from AC IV with first draw wasted. Labs sent with aaron Canales tech.
[2020-01-06 04:00] VITALS: BP 131/87
--- NOTE | 2020-01-06 04:45 | Progress Note ---
DATE: 01/05/2020 SUBJECTIVE: Patient is awake, alert, afebrile, and hemodynamically stable. PHYSICAL EXAMINATION: VITAL SIGNS: Blood pressure 129/84, his pulse is 83, respirations are 18, temperature 98.2. HEENT: Eyes were normal. ENT, mucous membranes were moist and intact. NECK: Supple with no JVD without lymph nodes. Tracheostomy site is clean. LUNGS: Clear without rhonchi, rales, or wheezing. HEART: Normal sounds with regular beats. ABDOMEN: Soft and nontender with normal bowel sounds. Gastrostomy site is clean. EXTREMITIES: Warm without cyanosis, clubbing, or edema. LABORATORY DATA: His hemoglobin is 9.8, hematocrit 29.9 with MCV of 90, WBC of 22.4, and platelets of 383. His WBC was 46.9 on admission and 34.4 yesterday. His BUN and creatinine is 18 and 0.5 respectively. Sodium is 139, potassium 3.4, chloride 103, CO2 is 20. His calcium was 10.6 yesterday, it is 9.9 today. His phosphorus is 3.5 and his magnesium is 1.6. His albumin is 3.2 and total protein is 7.2. IMPRESSION: The patient has hypokalemia and it was corrected daily with KCl. He was given 40 b.i.d. on a daily basis. Patient has hypomagnesemia, received 2 g IV piggyback of magnesium sulfate over 2 hours. Patient is currently on cefepime 1 g IV piggyback q.12, vancomycin 1 g IV piggyback q.12, levofloxacin 750 mg IV piggyback q.24h. Repeat laboratory tests will be done in the a.m. Cheryl Pereira M.D. DR: ILDEFONSO JOB#: [id number] CC:
[2020-01-06 05:53] LABS: BASOPHILS % (AUTO) 0.5 % (0.0-2.0); EOSINOPHILS % (AUTO) 1.1 % (0.0-3.0); HEMATOCRIT 25.7 % (42.0-52.0); HEMOGLOBIN 8.8 G/DL (14.2-18.0); LYMPHOCYTES % (AUTO) 14.1 % (20.0-45.0); MEAN CORPUSCULAR VOLUME 89 FL (80-99); MONOCYTES % (AUTO) 6.1 % (1.0-10.0); NEUTROPHILS % (AUTO) 78.3 % (45.0-75.0); PLATELET COUNT 354 K/UL (150-450); RED BLOOD COUNT 2.89 M/UL (4.70-6.10); RED CELL DISTRIBUTION WIDTH 13.2 % (11.6-14.8); WHITE BLOOD COUNT 13.5 K/UL (4.8-10.8)
[2020-01-06] MEDS: Cefepime HCl 1 GM in D5W 55 ML IVPB SCH ×2 (05:56→17:57)
[2020-01-06 06:05] LABS: ALANINE AMINOTRANSFERASE 41 U/L (12-78); ALBUMIN/GLOBULIN RATIO 0.4 (1.0-2.7); ALKALINE PHOSPHATASE 87 U/L (46-116); ANION GAP 12 mmol/L (5-15); ASPARTATE AMINO TRANSFERASE 27 U/L (15-37); BILIRUBIN,TOTAL 0.2 MG/DL (0.2-1.0); BLOOD UREA NITROGEN 12 mg/dL (7-18); CALCIUM 9.6 MG/DL (8.5-10.1); CARBON DIOXIDE 22 MMOL/L (21-32); CHLORIDE 103 MMOL/L (98-107); CREATININE 0.5 MG/DL (0.55-1.30); POTASSIUM 3.4 MMOL/L (3.5-5.1); SODIUM 137 MMOL/L (136-145)
[2020-01-06 06:37] LABS: PHOSPHORUS 3.9 MG/DL (2.5-4.9)
--- NOTE | 2020-01-06 07:05 | NUR ---
HAND-OFF: Report given to SARAH Caruso.
[2020-01-06 08:00] VITALS: BP 148/83
[2020-01-06] MEDS ORDERED: Vancomycin 1gm/D5W 275ml IVPB SCH ×2 (09:00)
[2020-01-06] MEDS: Valproic Acid 250mg/5ml Liquid GT SCH (09:00)
--- NOTE | 2020-01-06 09:42 | NUR ---
CASE MANAGEMENT: NOTE SPOKE WITH MARICEL FROM: [facility] FIRST COVID-19 TEST NEGATIVE INFORMED MARICEL THAT SECOND COVID-19 TEST WAS COLLECTED 01/05/20 IS PENDING MARIECL MADE AWARE THAT RETIREMENT IS REQUESTING TWO NEGATIVE COVID-19 TEST PRIOR TO RETURN
[2020-01-06] MEDS: Vancomycin 1gm/D5W 275ml IVPB SCH ×4 (09:56→17:27)
--- NOTE | 2020-01-06 10:42 | NUR ---
NURSE NOTES: Recvd pt. Pt is resting in bed comfortably. Pt has cuffed trach with vent settings as ordered by phys. 02 sat 100%. VSS. GT is running @ 30cc/hr. IV appears c/d/i. Bed in lowest position, call light within reach, will continue with plan of care
--- NOTE | 2020-01-06 10:46 | Pulmonolgy Critical Care Note ---
Critical Care - Asmt/Plan Problems: (1) Sepsis (2) HCAP (healthcare-associated pneumonia) (3) Suspected COVID-19 virus infection (4) Chronic respiratory failure (5) Paraplegia (6) Feeding by G-tube Respiratory: monitor respiratory rate, adjust FIO2, CXR Cardiac: continue to monitor HR/BP Renal: F/U I&O, other Infectious Disease: check cultures, other - wbc decreasing Gastrointestinal: continue feedings/current rate Endocrine: monitor blood sugar Hematologic: monitor H/H, transfuse if hgb<8.5 Neurologic: keep patient comfortable Affect: PRN ativan Prophylaxis: Heparin Notes Reviewed: cardio, renal Discussed with: nurses, consultants, case management directoradoption manager - Objective Last 24 Hour Vital Signs Date Time Temp Pulse Resp B/P (MAP) Pulse Ox O2 Delivery O2 Flow Rate FiO2 01/06/20 09:00 Mechanical Ventilator 01/06/20 08:00 97.9 81 17 148/83 (104) 100 01/06/20 08:00 40 01/06/20 08:00 83 01/06/20 07:20 94 24 40 01/06/20 05:30 82 19 40 01/06/20 04:00 98.0 85 20 131/87 (102) 97 01/06/20 04:00 40 01/06/20 03:37 88 01/06/20 03:03 84 16 40 01/06/20 01:03 84 18 40 01/06/20 00:00 87 01/06/20 00:00 98.2 83 18 129/84 (99) 99 01/05/20 22:49 93 19 40 01/05/20 21:16 95 18 40 01/05/20 21:00 Mechanical Ventilator 01/05/20 20:00 94 18 40 01/05/20 20:00 98.6 93 17 137/89 (105) 99 01/05/20 20:00 40 01/05/20 19:05 94 01/05/20 16:57 96 19 40 01/05/20 16:00 40 01/05/20 16:00 98.2 95 19 133/91 (105) 100 01/05/20 15:08 92 01/05/20 14:36 92 17 40 01/05/20 13:01 96 16 40 01/05/20 12:00 97.5 94 16 134/90 (105) 100 01/05/20 12:00 40 01/05/20 11:54 95 Status: awake Condition: grave Neck: full ROM Abdomen: non-tender, active bowel sounds Extremities: no C/C/E, edema Micro: Microbiology Date/Time Source Procedure Growth Status 01/05/20 04:15 Sputum Gram Stain - Final Resulted 01/05/20 04:15 Sputum Culture - Preliminary Gram Negative [place] Resulted 01/05/20 04:00 Urine,Clean Catch Urine Culture - Preliminary Resulted Critical Care - Subjective Interval Events: afebrile, wants to eat by mouth. very friendly FI02: 40 Vent Support Breath Rate: 16 Vent Support Mode: AC Vent Tidal Volume: 600 Sputum Amount: Small PEEP: 5.0 PIP: 21 Tube Feeding Amount: 30 I&O: Intake and Output 01/05/20 01/06/20 19:00 07:00 Intake Total 1186.666 ml 1395.830 ml Output Total 400 ml Balance 786.666 ml 1395.830 ml Free Water 200 ml 200 ml IV Total 656.666 ml 835.830 ml Tube Feeding 330 ml 360 ml Output Urine Total 400 ml Labs: Laboratory Tests Test 01/06/20 04:00 White Blood Count 13.5 K/UL (4.8-10.8) H Red Blood Count 2.89 M/UL (4.70-6.10) L Hemoglobin 8.8 G/DL (14.2-18.0) L Hematocrit 25.7 % (42.0-52.0) L Mean Corpuscular Volume 89 FL (80-99) Mean Corpuscular Hemoglobin 30.5 PG (27.0-31.0) Mean Corpuscular Hemoglobin Concent 34.2 G/DL (32.0-36.0) Red Cell Distribution Width 13.2 % (11.6-14.8) Platelet Count 354 K/UL (150-450) Mean Platelet Volume 4.9 FL (6.5-10.1) L Neutrophils (%) (Auto) 78.3 % (45.0-75.0) H Lymphocytes (%) (Auto) 14.1 % (20.0-45.0) L Monocytes (%) (Auto) 6.1 % (1.0-10.0) Eosinophils (%) (Auto) 1.1 % (0.0-3.0) Basophils (%) (Auto) 0.5 % (0.0-2.0) Erythrocyte Sedimentation Rate 129 MM/HR (0-20) H Sodium Level 137 MMOL/L (136-145) Potassium Level 3.4 MMOL/L (3.5-5.1) L Chloride Level 103 MMOL/L (98-107) Carbon Dioxide Level 22 MMOL/L (21-32) Anion Gap 12 mmol/L (5-15) Blood Urea Nitrogen 12 mg/dL (7-18) Creatinine 0.5 MG/DL (0.55-1.30) L Estimat Glomerular Filtration Rate > 60 mL/min (>60) Glucose Level 104 MG/DL (74-106) Calcium Level 9.6 MG/DL (8.5-10.1) Phosphorus Level 3.9 MG/DL (2.5-4.9) Magnesium Level 1.8 MG/DL (1.8-2.4) Total Bilirubin 0.2 MG/DL (0.2-1.0) Aspartate Amino Transf (AST/SGOT) 27 U/L (15-37) Alanine Aminotransferase (ALT/SGPT) 41 U/L (12-78) Alkaline Phosphatase 87 U/L (46-116) C-Reactive Protein, Quantitative 17.3 mg/dL (0.00-0.90) H Total Protein 6.8 G/DL (6.4-8.2) Albumin 2.0 G/DL (3.4-5.0) L Globulin 4.8 g/dL Albumin/Globulin Ratio 0.4 (1.0-2.7) L Vancomycin Level Trough 10.2 ug/mL (5.0-12.0) Pola Goode MD Jan 06, 2020 10:46
[2020-01-06 12:00] VITALS: BP 140/72
--- NOTE | 2020-01-06 12:54 | NUR ---
SUPERVISOR BORDER DEPARTMENT ORDERS RECEIVED AND ACKNOWLEDGED FOR BEDSIDE SWALLOW EVALUATION. EVALUATION NOT COMPLETED DUE TO SUPERVISOR BORDER DEPARTMENT'S TIME LIMITATIONS. PER RN, PT IS TRACH TO VENT, CUFFED, FI02 40%, A/C MODE 16, TIDAL VOLUME 600. PT HAS PEG FOR NUTRITION/HYDRATION/MEDICATION MANAGEMENT. PT WILL NEED PMV TRIALS AND TRAINING PRIOR TO BEDSIDE SWALLOWING EVALUATION DUE TO THE ASPIRATION RISKS ASSOCIATED W/ PO INTAKE WITHOUT PASSY NOA VALVE (PMV) PLACEMENT SUCH REDUCED LARYNGEAL AND PHARYNGEAL SENSITIVITY AND POOR SUBGLOTTIC PRESSURE. 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 SUPERVISOR BORDER DEPARTMENT PLANS TO COMPLETE PMV TRIALS AND TRAINING ALONG W/ SWALLOWING EVALUATION TOMORROW (01/07/20) SUPERVISOR BORDER DEPARTMENT TIME PERMITTING. RECOMMEND CONTINUE USING PEG FOR ALTERNATIVE NUTRITION/HYDRATION AND MED MANAGEMENT. SUPERVISOR BORDER DEPARTMENT EDUCATED RN REGARDING RESULTS AND IMPORTANCE OF ORAL CARE/HYGIENE AND PLANS TO FOLLOW UP TOMORROW TO COMPLETE EVALUATION.
[2020-01-06] MEDS ORDERED: Tubing IV Secondary IV ONE ×2 (12:58→14:20)
[2020-01-06] MEDS ORDERED: NS 275ml ONE (14:20)
--- NOTE | 2020-01-06 15:11 | Infectious Diseases Prog Note ---
Assessment/Plan Assessment/Plan 59-year-old male with: 1. Sepsis, improving 2. Pneumonia. sp cx: GNR 3. Fever, Sp 4. Leukocytosis, improving 5. Rule out probable COVID-19. SARS-CoV PCR neg 6. Rule out probable urinary tract infection. UCx: P PLAN: 1. We will continue the patient on Levaquin and cefepime #4 cont Vanc #3 2. Monitor CBC. 3. Monitor BMP. 4. Monitor cultures (blood, urine, sputum). 5. Monitor chest x-ray. 6. COVID-19. CHANO RN Subjective Allergies: Coded Allergies: No Known Allergies (Unverified , 01/03/20) Subjective Afebrile. FiO2 40% WBC better Objective Vital Signs Last 24 Hour Vital Signs Date Time Temp Pulse Resp B/P (MAP) Pulse Ox O2 Delivery O2 Flow Rate FiO2 01/06/20 12:00 40 01/06/20 12:00 85 01/06/20 12:00 97.5 89 16 140/72 (94) 100 01/06/20 09:00 Mechanical Ventilator 01/06/20 08:00 97.9 81 17 148/83 (104) 100 01/06/20 08:00 40 01/06/20 08:00 83 01/06/20 07:20 94 24 40 01/06/20 05:30 82 19 40 01/06/20 04:00 98.0 85 20 131/87 (102) 97 01/06/20 04:00 40 01/06/20 03:37 88 01/06/20 03:03 84 16 40 01/06/20 01:03 84 18 40 01/06/20 00:00 87 01/06/20 00:00 98.2 83 18 129/84 (99) 99 01/05/20 22:49 93 19 40 01/05/20 21:16 95 18 40 01/05/20 21:00 Mechanical Ventilator 01/05/20 20:00 94 18 40 01/05/20 20:00 98.6 93 17 137/89 (105) 99 01/05/20 20:00 40 01/05/20 19:05 94 01/05/20 16:57 96 19 40 01/05/20 16:00 40 01/05/20 16:00 98.2 95 19 133/91 (105) 100 01/05/20 15:08 92 Height (Feet): 5 Height (Inches): 8.00 Weight (Pounds): 170 Objective Gen: anxious HEEN: anicteric sclera. trached CV: no rubs or gallop Resp: tachypneic. coarse. no wheezes Abd: nondistended. soft. Neuro: alert. mouthing words. Microbiology Date/Time Source Procedure Growth Status 01/05/20 04:15 Sputum Gram Stain - Final Resulted 01/05/20 04:15 Sputum Culture - Preliminary Gram Negative [place] Resulted 01/05/20 04:00 Urine,Clean Catch Urine Culture - Preliminary Resulted Laboratory Tests Test 01/06/20 04:00 White Blood Count 13.5 K/UL (4.8-10.8) H Red Blood Count 2.89 M/UL (4.70-6.10) L Hemoglobin 8.8 G/DL (14.2-18.0) L Hematocrit 25.7 % (42.0-52.0) L Mean Corpuscular Volume 89 FL (80-99) Mean Corpuscular Hemoglobin 30.5 PG (27.0-31.0) Mean Corpuscular Hemoglobin Concent 34.2 G/DL (32.0-36.0) Red Cell Distribution Width 13.2 % (11.6-14.8) Platelet Count 354 K/UL (150-450) Mean Platelet Volume 4.9 FL (6.5-10.1) L Neutrophils (%) (Auto) 78.3 % (45.0-75.0) H Lymphocytes (%) (Auto) 14.1 % (20.0-45.0) L Monocytes (%) (Auto) 6.1 % (1.0-10.0) Eosinophils (%) (Auto) 1.1 % (0.0-3.0) Basophils (%) (Auto) 0.5 % (0.0-2.0) Erythrocyte Sedimentation Rate 129 MM/HR (0-20) H Sodium Level 137 MMOL/L (136-145) Potassium Level 3.4 MMOL/L (3.5-5.1) L Chloride Level 103 MMOL/L (98-107) Carbon Dioxide Level 22 MMOL/L (21-32) Anion Gap 12 mmol/L (5-15) Blood Urea Nitrogen 12 mg/dL (7-18) Creatinine 0.5 MG/DL (0.55-1.30) L Estimat Glomerular Filtration Rate > 60 mL/min (>60) Glucose Level 104 MG/DL (74-106) Calcium Level 9.6 MG/DL (8.5-10.1) Phosphorus Level 3.9 MG/DL (2.5-4.9) Magnesium Level 1.8 MG/DL (1.8-2.4) Total Bilirubin 0.2 MG/DL (0.2-1.0) Aspartate Amino Transf (AST/SGOT) 27 U/L (15-37) Alanine Aminotransferase (ALT/SGPT) 41 U/L (12-78) Alkaline Phosphatase 87 U/L (46-116) C-Reactive Protein, Quantitative 17.3 mg/dL (0.00-0.90) H Total Protein 6.8 G/DL (6.4-8.2) Albumin 2.0 G/DL (3.4-5.0) L Globulin 4.8 g/dL Albumin/Globulin Ratio 0.4 (1.0-2.7) L Vancomycin Level Trough 10.2 ug/mL (5.0-12.0) Current Medications Medications (Trade) Dose Ordered Sig/Emmanuelle Route PRN Reason Start Time Stop Time Status Last Admin Dose Admin Acetaminophen (Tylenol) 500 mg Q6H PRN ORAL Mild Pain/Temp > 100.5 01/03/20 11:00 02/02/20 10:59 Cefepime HCl 1 gm/ Dextrose 55 ml @ 110 mls/hr Q12H IVPB 01/04/20 18:00 01/11/20 17:59 01/06/20 05:56 Clozapine (Clozaril) 200 mg DAILY ORAL 01/04/20 09:00 01/11/20 08:59 01/06/20 09:00 Levofloxacin 100 ml @ 100 mls/hr Q24H IVPB 01/04/20 06:00 01/11/20 05:59 01/06/20 05:56 Sodium Chloride 1,000 ml @ 50 mls/hr Q20H IV 01/04/20 08:00 02/03/20 07:59 01/06/20 00:23 Valproic Acid (Depakene) 250 mg DAILY GT 01/04/20 09:00 5/4/20 08:59 01/06/20 09:00 Vancomycin HCl (Vanco rx to dose) 1 ea DAILY PRN MISC Per rx protocol 01/04/20 16:30 02/03/20 16:29 Vancomycin HCl 1 gm/Dextrose 275 ml @ 183.708 mls/hr Q8H IVPB 01/06/20 09:00 01/11/20 08:59 01/06/20 09:56 Frankie Bishop MD Jan 06, 2020 15:11
--- NOTE | 2020-01-06 15:45 | History and Physical Report ---
DATE OF ADMISSION: 01/03/2020 This is a third admission to [facility] of this 59-year-old patient because of fever, cough, and shortness of breath. HISTORY OF PRESENT ILLNESS: The patient is a resident of long-term care facility subacute unit where he has been in stable condition over the last several weeks. He is known to have chronic medical syndrome, but has been stable on the current medication. On the day of admission, he developed fever, tachycardia, cough, and shortness of breath. He was transferred by paramedics to [facility] ER. This patient for COVID-19 syndrome. The patient was admitted and placed in isolation room. 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 He is noted to have hepatitis B tetanus toxin and vaccination and pneumococcal vaccination as well. In addition to his respiratory, vascular, and OPHTHALMIC ASST, the patient has been treated for chronic psychosis. ALLERGIES: No known drug allergies. MEDICATIONS: The patient is on clozapine 200 mg daily, valproic acid 250 mg daily, and levofloxacin. He is on multiple p.r.n. medications. In the emergency room, the patient received levofloxacin and cefepime. Currently, he is on levofloxacin 750 mg IV piggyback every 24 hours. FAMILY HISTORY: Noncontributory. SOCIAL HISTORY: He is single. He was born in [place] and been for many years prior to . He was unemployed as well. HABITS: The patient did smoke more than one pack a day for more than 30 years. He denies drinking. Denies the use of illicit drugs. REVIEW OF SYSTEMS: The patient is unable to give any information regarding his state of health. PHYSICAL EXAMINATION: VITAL SIGNS: Blood pressure is 144/93, his pulse is 105, respirations are 16, and temperature 99.3. HEENT: Eyes were normal. Pupils were round, equal, and reactive to light. Sclerae were white. Conjunctivae were pink. Extraocular movements were normal. Temporal arteries were palpable bilaterally. There was no bilateral temporal wasting. Visual jesus to confrontation were normal and neglect sign was negative. ENT, mucous membranes were not dehydrated. Auditory canals were clear and tympanic membranes could not be visualized. Nasal cavity was not congested. Nasal septum was intact. Soft palate was free of ulcerations. Pharynx could not be visualized. Tongue was moist, midline, and normally papillated. NECK: Supple. There was no goiter. No mass. No lymphadenopathy. There was no JVD. No bruits. Carotid upstroke was 2+. LUNGS: Clear. HEART: PMI was in fifth left intercostal space in midclavicular line. There was normal S1 and normal S2. No murmur. No arrhythmia. No S3. No S4. No pericardial rub. ABDOMEN: Soft and nontender without organomegaly. There were no masses palpable. Normal bowel sounds without bruits. There was no guarding. No rebound tenderness. No ascites. No hernia. No CVA tenderness. Liver span was 8 cm, mostly nontender. EXTREMITIES: No cyanosis. No clubbing. No edema. Extremities were warm. NEUROLOGICAL EXAMINATION: Reflexes in biceps, triceps, and brachioradialis were present. Patellar retinaculum was difficult to elicit. Plantars were in extension on the right, indifferent on the left. Cranial nerves II through XII were symmetric and equal. Cerebellar function, there was no tremor. No nystagmus. No extrapyramidal rigidity. Sensory exam to pinprick, cotton touch, position are grossly normal. Motor strength could not be assessed because of lack of patient cooperation. The patient is agitated . LABORATORY AND DIAGNOSTIC DATA: Hemoglobin is 11.2, hematocrit is 33.2 with MCV of 88, WBC of , and platelets of 542. His BUN and creatinine are 18 and 0.8 respectively. His sodium is 141, potassium 3.9, chloride 102, CO2 is 25. His calcium is 11.1. SGOT was 134 and SGPT was 19. Troponin was 0.021. His chest x-ray showed basal atelectasis. IMPRESSION AND PLAN: The patient is now , hemodynamically stable with low-grade fever and mild leukocytosis. He is currently on cefepime 1 g IV piggyback q.12h. and levofloxacin 750 mg IV piggyback q.24 hours. Pulmonary consultation in management of this case. COVID parameters were established. Repeat laboratory tests will be done in a.m. Cheryl Pereira M.D. DR: JOLIE JOB#: [id number] CC:
[2020-01-06 16:00] VITALS: BP 155/83
--- NOTE | 2020-01-06 16:06 | NUR ---
*-* INSURANCE *-* UP HEALTH SYSTEMPam:MARICEL P: [phone] EXT. [id number] F: [phone] REF# [id number]
--- NOTE | 2020-01-06 19:32 | NUR ---
NURSE NOTES: Pt received from SARAH Caruso alert and nonverbal but able to indicate needs by mouthing. Pt has cuffed trach for airway support, saturating at 98% with no acute s/s of distress noted. IV site asymptomatic and patent, running to NS at 50. Bed in lowest position, call light and belongings within reach.
[2020-01-06 20:00] VITALS: BP 134/74
[2020-01-07] VITALS: BP 137/82
[2020-01-07] MEDS: Vancomycin 1gm/D5W 275ml IVPB SCH ×6 (01:42→16:45)
--- NOTE | 2020-01-07 02:30 | Progress Note ---
DATE: 01/06/2020 SUBJECTIVE: The patient is a suspect for COVID infection. He has been seen today by the Infectious Disease and import/export specialist. The patient's condition continued to improve. Responded to IV antibiotics. He is on Levaquin and cefepime. PHYSICAL EXAMINATION: VITAL SIGNS: Blood pressure 134/74, his pulse is 107, respirations are 18, temperature 97.8. HEENT: Eyes were normal. ENT, mucous membranes were moist and intact. NECK: Supple with no JVD without lymph nodes. Tracheostomy site is clean. LUNGS: Clear without rales, or wheezing. There are bilateral rhonchi at both bases. HEART: Normal sounds with regular beats. There is only intermittent tachycardia at rest. ABDOMEN: Soft, nontender with normal bowel sounds. Gastrostomy site is clean. EXTREMITIES: Warm without cyanosis, clubbing, or edema. LABORATORY AND DIAGNOSTIC DATA: His hemoglobin is 8.8, hematocrit 25.7, MCV of 89, WBC of 13.5, and platelets of 354. His BUN and creatinine are 12 and 0.5 respectively. His sodium is 137, potassium 3.4, chloride 103, CO2 is 22. His phosphorus is 2.9. His magnesium is 1.8. His CRP is 17.3. His sputum culture grew gram-negative rods without identification or sensitivity. IMPRESSION: The patient with clinical improvement with antibiotic with reduction in fever and tachycardia and as indication most probably the patient does not have COVID-19; however, precautions will be continued until we have a definite negative or positive. Repeat laboratory tests will be done in the a.m. Cheryl Pereira M.D. DR: ILDEFONSO JOB#: [id number] CC:
[2020-01-07 04:00] VITALS: BP 124/74
[2020-01-07] MEDS: Cefepime HCl 1 GM in D5W 55 ML IVPB SCH (05:52)
[2020-01-07 06:29] LABS: HEMATOCRIT 26.3 % (42.0-52.0); HEMOGLOBIN 9.3 G/DL (14.2-18.0); MEAN CORPUSCULAR VOLUME 88 FL (80-99); PLATELET COUNT 406 K/UL (150-450); RED BLOOD COUNT 3.01 M/UL (4.70-6.10); RED CELL DISTRIBUTION WIDTH 12.7 % (11.6-14.8)
[2020-01-07 06:47] LABS: ANION GAP 10 mmol/L (5-15); BLOOD UREA NITROGEN 8 mg/dL (7-18); CALCIUM 9.2 MG/DL (8.5-10.1); CARBON DIOXIDE 24 MMOL/L (21-32); CHLORIDE 103 MMOL/L (98-107); CREATININE 0.5 MG/DL (0.55-1.30); POTASSIUM 3.5 MMOL/L (3.5-5.1); SODIUM 137 MMOL/L (136-145)
--- NOTE | 2020-01-07 07:11 | NUR ---
NURSE NOTES: Received patient in bed. Patient is alert awake, on 5 lead personnel monitor, with no acute distress. G-tube in place intact and dry and running Jevity 1.2 at 30mL/hr. Patient has sacral redness, IV on right AC20g and right forearm 22g, intact and patent. Bed at its lowest position, call light i reach and x3 bed rails are up. Will continue to monitor.
[2020-01-07 07:23] LABS: WHITE BLOOD COUNT 28.1 K/UL (4.8-10.8)
[2020-01-07 08:00] VITALS: BP 120/72
[2020-01-07] MEDS: Valproic Acid 250mg/5ml Liquid GT SCH (08:59)
--- NOTE | 2020-01-07 10:13 | NUR ---
*-* INSURANCE *-* [facility]IC[facility] P: [phone] EXT. [id number] F: [phone] REF# [id number] Addendum: 01/08/20 at 1218 by BRANDY ALVAREZ [facility] [place] [facility] [employer]ANN[facility] [phone]
--- NOTE | 2020-01-07 10:51 | NUR ---
CASE MANAGEMENT: REVIEW SI: SEPSIS . TRACH/VENT . PNA . COVID-19 VIRUS NOT DETECTED T 97.7 HR 102 RR 23 BP 120/72 SAT 99% MECH VENT FIO2 40 WBC 28.1 H/H 9.3/26.3 COVID-19 VIRUS NOT DETECTED 01/04 COVID-19 VIRUS NOT DETECTED 01/02 IS: CEFEPIME IV Q12HR LEVOFLOXACIN IV Q24HR NS IVF @ 50ML/HR VALPROIC ACID GT DAILY G-TUBE FEEDING BEDSIDE SWALLOW EVAL PMV TRIALS & TRAINING STEP DOWN UNIT STATUS DCP: PATIENT IS FROM [facility]
--- NOTE | 2020-01-07 11:05 | Infectious Diseases Prog Note ---
Assessment/Plan Assessment/Plan 59-year-old male with: 1. Sepsis, improving 2. Pneumonia. sp cx: ESBL E coli 3. Fever, Sp 4. Leukocytosis, uptrending 5. Rule out probable COVID-19. SARS-CoV PCR neg 6. Rule out probable urinary tract infection. UCx: Strep species PLAN: Ertapenem #1 and Vanc #4 4/7 SP cefepime and levaquin #4 2. Monitor CBC. 3. Monitor BMP. 4. Monitor cultures (blood, urine, sputum). 5. Monitor chest x-ray. 6. COVID-19. CHANO RN Subjective Allergies: Coded Allergies: No Known Allergies (Unverified , 01/03/20) Subjective Afebrile. FiO2 40% WBC uptrended Objective Vital Signs Last 24 Hour Vital Signs Date Time Temp Pulse Resp B/P (MAP) Pulse Ox O2 Delivery O2 Flow Rate FiO2 01/07/20 09:00 Mechanical Ventilator 01/07/20 08:51 97 23 40 01/07/20 08:00 40 01/07/20 08:00 97.7 98 18 120/72 (88) 99 01/07/20 06:31 102 22 40 01/07/20 06:00 95 18 40 01/07/20 04:00 97.8 96 18 124/74 (91) 99 01/07/20 04:00 40 01/07/20 04:00 96 01/07/20 01:08 93 18 40 01/07/20 00:00 101 01/07/20 00:00 97.7 102 18 137/82 (100) 100 01/06/20 22:40 94 19 40 01/06/20 21:00 Mechanical Ventilator 01/06/20 20:32 99 20 40 01/06/20 20:00 40 01/06/20 20:00 117 01/06/20 20:00 97.8 105 18 134/74 (94) 100 01/06/20 19:49 107 22 40 01/06/20 17:13 94 20 40 01/06/20 16:00 40 01/06/20 16:00 97.9 115 17 155/83 (107) 99 01/06/20 16:00 102 01/06/20 15:05 95 21 40 01/06/20 13:20 92 22 40 01/06/20 12:00 40 01/06/20 12:00 85 01/06/20 12:00 97.5 89 16 140/72 (94) 100 Height (Feet): 5 Height (Inches): 8.00 Weight (Pounds): 170 Objective Gen: NAD. calm. HEEN: anicteric sclera. trached CV: no rubs or gallop Resp: tachypneic. coarse. no wheezes Abd: nondistended. soft. Microbiology Date/Time Source Procedure Growth Status 01/05/20 12:17 Nasopharynx Coronavirus COVID-19 PCR (KRISTEN) - Final Complete 01/05/20 04:15 Sputum Gram Stain - Final Resulted 01/05/20 04:15 Sputum Culture - Preliminary Escherichia Coli Resulted 01/05/20 04:00 Urine,Clean Catch Urine Culture - Preliminary Streptococcus Species Resulted Laboratory Tests Test 01/07/20 06:00 White Blood Count 28.1 K/UL (4.8-10.8) #*H Red Blood Count 3.01 M/UL (4.70-6.10) L Hemoglobin 9.3 G/DL (14.2-18.0) L Hematocrit 26.3 % (42.0-52.0) L Mean Corpuscular Volume 88 FL (80-99) Mean Corpuscular Hemoglobin 30.9 PG (27.0-31.0) Mean Corpuscular Hemoglobin Concent 35.2 G/DL (32.0-36.0) Red Cell Distribution Width 12.7 % (11.6-14.8) Platelet Count 406 K/UL (150-450) Mean Platelet Volume 5.4 FL (6.5-10.1) L Neutrophils (%) (Auto) % (45.0-75.0) Lymphocytes (%) (Auto) % (20.0-45.0) Monocytes (%) (Auto) % (1.0-10.0) Eosinophils (%) (Auto) % (0.0-3.0) Basophils (%) (Auto) % (0.0-2.0) Differential Total Cells Counted 100 Neutrophils % (Manual) 82 % (45-75) H Lymphocytes % (Manual) 10 % (20-45) L Monocytes % (Manual) 7 % (1-10) Eosinophils % (Manual) 1 % (0-3) Basophils % (Manual) 0 % (0-2) Band Neutrophils 0 % (0-8) Platelet Estimate Adequate Platelet Morphology Normal Hypochromasia 2+ Anisocytosis 1+ Spherocytes 1+ Sodium Level 137 MMOL/L (136-145) Potassium Level 3.5 MMOL/L (3.5-5.1) Chloride Level 103 MMOL/L (98-107) Carbon Dioxide Level 24 MMOL/L (21-32) Anion Gap 10 mmol/L (5-15) Blood Urea Nitrogen 8 mg/dL (7-18) Creatinine 0.5 MG/DL (0.55-1.30) L Estimat Glomerular Filtration Rate > 60 mL/min (>60) Glucose Level 125 MG/DL (74-106) H Calcium Level 9.2 MG/DL (8.5-10.1) Current Medications Medications (Trade) Dose Ordered Sig/Emmanuelle Route PRN Reason Start Time Stop Time Status Last Admin Dose Admin Acetaminophen (Tylenol) 500 mg Q6H PRN ORAL Mild Pain/Temp > 100.5 01/03/20 11:00 02/02/20 10:59 Cefepime HCl 1 gm/ Dextrose 55 ml @ 110 mls/hr Q12H IVPB 01/04/20 18:00 01/11/20 17:59 01/07/20 05:52 Clozapine (Clozaril) 200 mg DAILY ORAL 01/04/20 09:00 01/11/20 08:59 01/07/20 08:59 Levofloxacin 100 ml @ 100 mls/hr Q24H IVPB 01/04/20 06:00 01/11/20 05:59 01/07/20 05:50 Sodium Chloride 1,000 ml @ 50 mls/hr Q20H IV 01/04/20 08:00 02/03/20 07:59 01/07/20 01:42 Valproic Acid (Depakene) 250 mg DAILY GT 01/04/20 09:00 02/03/20 08:59 01/07/20 08:59 Vancomycin HCl (Vanco rx to dose) 1 ea DAILY PRN MISC Per rx protocol 01/04/20 16:30 02/03/20 16:29 Vancomycin HCl 1 gm/Dextrose 275 ml @ 183.708 mls/hr Q8H IVPB 01/06/20 09:00 01/11/20 08:59 01/07/20 08:59 Frankie Bishop MD Jan 07, 2020 11:05
--- NOTE | 2020-01-07 11:52 | Pulmonolgy Critical Care Note ---
Critical Care - Asmt/Plan Problems: (1) Sepsis (2) HCAP (healthcare-associated pneumonia) (3) Suspected COVID-19 virus infection (4) Chronic respiratory failure (5) Paraplegia (6) Feeding by G-tube Respiratory: monitor respiratory rate, adjust FIO2, CXR Cardiac: continue to monitor HR/BP Renal: keep IV fluid, check electrolytes Infectious Disease: check cultures, other - COVID19 negative Gastrointestinal: continue feedings/current rate Endocrine: monitor blood sugar Hematologic: monitor H/H, transfuse if hgb<8.5 Neurologic: PRN Ativan, PRN Morphine Affect: PRN ativan Prophylaxis: Heparin Disposition: keep in ICU Critical Care - Objective Last 24 Hour Vital Signs Date Time Temp Pulse Resp B/P (MAP) Pulse Ox O2 Delivery O2 Flow Rate FiO2 01/07/20 10:40 96 28 40 01/07/20 09:00 Mechanical Ventilator 01/07/20 08:51 97 23 40 01/07/20 08:00 40 01/07/20 08:00 97.7 98 18 120/72 (88) 99 01/07/20 06:31 102 22 40 01/07/20 06:00 95 18 40 01/07/20 04:00 97.8 96 18 124/74 (91) 99 01/07/20 04:00 40 01/07/20 04:00 96 01/07/20 01:08 93 18 40 01/07/20 00:00 101 01/07/20 00:00 97.7 102 18 137/82 (100) 100 01/06/20 22:40 94 19 40 01/06/20 21:00 Mechanical Ventilator 01/06/20 20:32 99 20 40 01/06/20 20:00 40 01/06/20 20:00 117 01/06/20 20:00 97.8 105 18 134/74 (94) 100 01/06/20 19:49 107 22 40 01/06/20 17:13 94 20 40 01/06/20 16:00 40 01/06/20 16:00 97.9 115 17 155/83 (107) 99 01/06/20 16:00 102 01/06/20 15:05 95 21 40 01/06/20 13:20 92 22 40 01/06/20 12:00 40 01/06/20 12:00 85 01/06/20 12:00 97.5 89 16 140/72 (94) 100 Status: awake Condition: critical HEENT: atraumatic Neck: full ROM Lungs: clear Heart: HR/BP stable Abdomen: non-tender Micro: Microbiology Date/Time Source Procedure Growth Status 01/05/20 12:17 Nasopharynx Coronavirus COVID-19 PCR (KRISTEN) - Final Complete 01/05/20 04:15 Sputum Gram Stain - Final Resulted 01/05/20 04:15 Sputum Culture - Preliminary Escherichia Coli Resulted 01/05/20 04:00 Urine,Clean Catch Urine Culture - Preliminary Streptococcus Species Resulted Critical Care - Subjective ROS Limited/Unobtainable: No Condition: critical EKG Rhythm: Sinus Rhythm FI02: 40 Vent Support Breath Rate: 16 Vent Support Mode: AC Vent Tidal Volume: 600 Sputum Amount: Small PEEP: 5.0 PIP: 28 Tube Feeding Amount: 30 I&O: Intake and Output 01/06/20 01/07/20 19:00 07:00 Intake Total 1176 ml 730 ml Output Total 1100 ml 700 ml Balance 76 ml 30 ml Free Water 150 ml 200 ml IV Total 966 ml 200 ml Tube Feeding 60 ml 330 ml Output Urine Total 1100 ml 700 ml Labs: Laboratory Tests Test 01/07/20 06:00 White Blood Count 28.1 K/UL (4.8-10.8) #*H Red Blood Count 3.01 M/UL (4.70-6.10) L Hemoglobin 9.3 G/DL (14.2-18.0) L Hematocrit 26.3 % (42.0-52.0) L Mean Corpuscular Volume 88 FL (80-99) Mean Corpuscular Hemoglobin 30.9 PG (27.0-31.0) Mean Corpuscular Hemoglobin Concent 35.2 G/DL (32.0-36.0) Red Cell Distribution Width 12.7 % (11.6-14.8) Platelet Count 406 K/UL (150-450) Mean Platelet Volume 5.4 FL (6.5-10.1) L Neutrophils (%) (Auto) % (45.0-75.0) Lymphocytes (%) (Auto) % (20.0-45.0) Monocytes (%) (Auto) % (1.0-10.0) Eosinophils (%) (Auto) % (0.0-3.0) Basophils (%) (Auto) % (0.0-2.0) Differential Total Cells Counted 100 Neutrophils % (Manual) 82 % (45-75) H Lymphocytes % (Manual) 10 % (20-45) L Monocytes % (Manual) 7 % (1-10) Eosinophils % (Manual) 1 % (0-3) Basophils % (Manual) 0 % (0-2) Band Neutrophils 0 % (0-8) Platelet Estimate Adequate Platelet Morphology Normal Hypochromasia 2+ Anisocytosis 1+ Spherocytes 1+ Sodium Level 137 MMOL/L (136-145) Potassium Level 3.5 MMOL/L (3.5-5.1) Chloride Level 103 MMOL/L (98-107) Carbon Dioxide Level 24 MMOL/L (21-32) Anion Gap 10 mmol/L (5-15) Blood Urea Nitrogen 8 mg/dL (7-18) Creatinine 0.5 MG/DL (0.55-1.30) L Estimat Glomerular Filtration Rate > 60 mL/min (>60) Glucose Level 125 MG/DL (74-106) H Calcium Level 9.2 MG/DL (8.5-10.1) Pola Goode MD Jan 07, 2020 11:52
[2020-01-07 12:00] VITALS: BP 135/70
--- NOTE | 2020-01-07 14:27 | NUR ---
ST NOTES: REFERRED FOR SWALLOW EVAL BY DR SUGGS (PRIMARY MD DR COVINGTON), SEE FULL REPORT. DYSPHAGIA AND ASPIRATION RISK FACTORS FOR THIS 59 Y.O.M.: ACUTE ON CHRONIC RESPIRATORY FAILURE WITH HYPOXIA (COPIOUS PURULENT SECRETIONS) HAS TRACH AND VENT DEPENDENT WITH PEG, PNA (HCAP BUT HAS ASPIRATION RISK DUE TO H/O DYSPHAGIA), SEPSIS, COUGH, SOB, FEVER, UTI, CYSTITIS, R/O COVID 19 NEGATIVE PER RN H/O OP DYSPHAGIA (PEG NO PO AT SNF), GERD MEDS AT SNF (PROTONIX), CVA, PARAPLEGIA, SEPSIS, SCHIZOAFFECTIVE D/O BIPOLAR TYPE (ON OLANZAPINE), COPD, RESP FAILURE VENT/TRACH, SMOKING X 30 YEARS (1PPD) NO DRUGS/ETOH. POLST OK TF AND HAS PEG (VITAL) ? WHEN PLACED AND DUE TO OP DYSPHAGIA. AT [facility] NO ST NOR PO INTAKE NOTED. NOW, NO PO AND ONLY PEG FEEDINGS. SEEN WITH AND W/OUT RT TODAY (SEE VENT SETTINGS) AND VITAL SIGNS IN RT/VOICE NOTE SECTION. PER RT, BERNARDO, PATIENT HAS A LOT OF SECRETIONS AND NEEDS FREQUENT TRACHEAL SUCTIONING. NO NEED FOR ORAL SUCTION REPORTED. NONVOCAL DUE TO TRACH/VENT AND NOT READY FOR SPEAKING VALVE DUE TO EXCESSIVE TRACHEAL SECRETIONS. ABLE TO MOUTH SOME WORDS, PER RN, COMMUNICATED THAT HE CAN BREATHE W/O VENT (HAS PSYCH ISSUES). ST HAD DIFFICULTY UNDERSTANDING HIM WITH MOUTHING BUT HE WAS ABLE TO SLOWLY SPELL PLEASE BUT HAD DIFFICULTY WITH OTHER WORDS. WILL F/UP WITH FORMAL SPEECH EVAL TOMORROW BUT LEFT WORD/PICTURE AND ALPHABET BOARD WITH HIM IN ADDITION TO ORAL CARE SIGN. INITIAL IMPRESSIONS: APHONIA DUE TO TRACH/VENT NO REPORTED NOR OBSERVED NEED FOR ORAL SUCTIONING EXCESSIVE TRACHEAL SECRETIONS FOR SPEAKING VALVE TRIAL (TO USE WITH PO TRIALS FOR BETTER PHARYNGEAL PRESSURE). HIGH RISK FOR PERSISTENT OR WORSENED OROPHARYNGEAL DYSPHAGIA. HIGH RISK FOR SILENT ASPIRATION DUE TO TRACH AND HAS CVA HX AND CURRENT PNA GROSSLY FUNCTIONAL LIP, TONGUE MOVEMENTS BUT SLIGHT TONGUE WEAKNESS WITH RESISTANCE TESTING (BILATERALLY). MIN DENTITION ONLY FRONT TEETH (NO DENTURES PER PT) RECOMMENDATIONS CONTINUE WITH PEG FEEDINGS USING ASPIRATION PRECAUTIONS WHEN RUNNING AND ORAL CARE. NO PO AT THIS TIME. F/UP WITH SPEAKING VALVE / SPEECH EVAL WHEN READY AND NONORAL COMMUNICATION EVAL/ASSIST (DR SUGGS GAVE T.O. FOR VALVE WITH CUFF DEFLATION) F/UP WITH MOD BARIUM SWALLOW STUDY PRIOR TO PO TRIALS IP OR OP IF DC DUE TO HIGH SILENT ASPIRATION RISK. EDUCATED/TRAINED RN, JESSICA, IN POSTED COMMUNICATION TIPS, ASPIRATION PRECAUTIONS WITH PEG FEEDINGS RUNNING, AND ORAL CARE NEEDS.
[2020-01-07] MEDS ORDERED: Ertapenem 1 GM in NS 55 ML IVPB SCH (15:00)
--- NOTE | 2020-01-07 15:22 | NUR ---
NURSE NOTES: spoke with Rosanne Anthony (conservator) [phone] and updated about patient's status.
[2020-01-07 15:48] VITALS: BP 123/65
--- NOTE | 2020-01-07 16:15 | NUR ---
NURSE NOTES:WOUND CARE NOTES:Pt presented on admission with Partial thickness pressure injury cleft of buttocks(L)4cm x (W)1cm. Base of wound is moist and viable. No odor or exudate noted. Non-blanching erythema without induration periwound. R and L heels are both non-blanchable and boggy. Pt denied tenderness when each heel individually palpated. Skin Assessed under collar of trach and no areas of Skin breakdown noted. Tx.Plan:Apply Moisture Barrier Paste to Sacrum. Cover with Optifoam drsg. Change every 3 days and prn. Apply Cavilon Skin Barrier Both heels. Cover each heel with Optifoam drsg. Change every 7 days and prn. Reposition at least every 2hours or as tolerated. Off-load heels with pillow.
--- NOTE | 2020-01-07 19:17 | NUR ---
HAND-OFF: Report given to Marlena Sanchez, endorsed all plan of care .
--- NOTE | 2020-01-07 19:18 | NUR ---
NURSE NOTES: received pt from Sridevi SMITH., pt is awake and AO x 1 at this moment. pt is nonverbal and using picture board to communication. vent is intact, no SOB noted. Gtube site is intact, clean, and patent. Right AC 20G IV site intact, clean, and patent. call light within reach. bed at the lowest position, alarmed and locked. will continue to monitor pt with plan of care.
[2020-01-07 20:00] VITALS: BP 133/70
--- NOTE | 2020-01-07 20:29 | Progress Note ---
DATE: 01/07/2020 SUBJECTIVE: Patient is awake, alert, afebrile, and hemodynamically stable. PHYSICAL EXAMINATION: VITAL SIGNS: Blood pressure is 123/65, his pulse is 95, respirations are 18, temperature 98.3. HEENT: Eyes were normal. ENT, mucous membranes were moist and intact. NECK: Supple with no JVD without lymph nodes. Tracheostomy site is clean. LUNGS: Clear without rhonchi, rales, or wheezing. HEART: Normal sounds with regular beats. His tachycardia now reduced to be low 100, between 95 and 100. ABDOMEN: Soft, nontender with normal bowel sounds. Gastrostomy site is clean. EXTREMITIES: Warm without cyanosis, clubbing, or edema. LABORATORY AND DIAGNOSTIC DATA: His hemoglobin is 9.3, hematocrit 26.3 with MCV of 88, WBC of 28,000, and platelets of 406. Previous WBC was 13.5. Two days ago, patient was being 22.4. Sputum culture revealed E. coli sensitive to ertapenem. Urine culture , but 10 to 20,000 colony-forming units only. No x-ray is available at the time of this dictation. IMPRESSION: Patient has sudden onset of increasing leukocytosis. Clinically he appeared better than yesterday. His Farmer test is negative or the test was not detected. Patient has been seen today by the milled rice broker. Infectious Disease labor relations consultant . CBC, BMP, and chest x-ray will be done in the a.m. Currently patient is on ertapenem 1 g IV piggyback q.24h. Cefepime was discontinued. He continued to be on vancomycin 1 g q.8. Levofloxacin has been discontinued as well. Repeat laboratory tests will be done in the a.m. Cheryl Pereira M.D. DR: ILDEFONSO JOB#: [id number] CC:
[2020-01-08] VITALS: BP 131/64
--- NOTE | 2020-01-08 00:15 | NUR ---
NURSE NOTES: Received report from SARAH Ortiz. Pt asleep. Easily awakened. Oriented X3-4 On vent with setting of AC-16/600/40%/peep-5, tolerating well with saturating 98%. IV site in RFA 22G SL patent and asymptomatic. Bed in lowest position and locked. Bed alarm engaged. Side rails up X3 up. Condom cath in place, patent and draining well. Call light within easy reach. Sinus rhythm on manager cardiac cath. Will continue POC
[2020-01-08] MEDS: Vancomycin 1gm/D5W 275ml IVPB SCH ×2 (01:23)
[2020-01-08 04:00] VITALS: BP 134/71
[2020-01-08 05:29] LABS: BASOPHILS % (AUTO) 0.6 % (0.0-2.0); EOSINOPHILS % (AUTO) 1.8 % (0.0-3.0); HEMATOCRIT 25.7 % (42.0-52.0); HEMOGLOBIN 8.8 G/DL (14.2-18.0); LYMPHOCYTES % (AUTO) 13.9 % (20.0-45.0); MEAN CORPUSCULAR VOLUME 88 FL (80-99); MONOCYTES % (AUTO) 6.6 % (1.0-10.0); NEUTROPHILS % (AUTO) 77.1 % (45.0-75.0); PLATELET COUNT 349 K/UL (150-450); RED BLOOD COUNT 2.91 M/UL (4.70-6.10); RED CELL DISTRIBUTION WIDTH 12.8 % (11.6-14.8)
[2020-01-08 06:02] LABS: ANION GAP 7 mmol/L (5-15); BLOOD UREA NITROGEN 7 mg/dL (7-18); CALCIUM 9.6 MG/DL (8.5-10.1); CARBON DIOXIDE 26 MMOL/L (21-32); CHLORIDE 104 MMOL/L (98-107); CREATININE 0.4 MG/DL (0.55-1.30); POTASSIUM 3.9 MMOL/L (3.5-5.1); SODIUM 137 MMOL/L (136-145)
--- NOTE | 2020-01-08 07:15 | NUR ---
HAND-OFF: Report given to Diana SMITH., pt remains stable, endorsed plan of care.
--- NOTE | 2020-01-08 07:28 | Infectious Diseases Prog Note ---
Assessment/Plan Assessment/Plan 59-year-old male with: 1. Sepsis, improving 2. Pneumonia. sp cx: ESBL E coli MRSA screen pos 3. Fever, Sp 4. Leukocytosis, improving 5. Less likely COVID-19. SARS-CoV PCR neg x2 6. Probable urinary tract infection. UCx: VRE(ampicillin sensitive) PLAN: DC Ertapenem #2 and Vanc #5. start meropenem #1 to cover both urine and sputum. 01/06 SP cefepime and levaquin #4 2. Monitor CBC. 3. Monitor BMP. 4. Monitor cultures (blood, urine, sputum). 5. Monitor chest x-ray. DC COVID isolation DW RN Subjective Allergies: Coded Allergies: No Known Allergies (Unverified , 01/03/20) Subjective Afebrile. FiO2 40% WBC improved pt asking for soda Objective Vital Signs Last 24 Hour Vital Signs Date Time Temp Pulse Resp B/P (MAP) Pulse Ox O2 Delivery O2 Flow Rate FiO2 01/08/20 07:18 81 16 40 01/08/20 05:15 96 18 40 01/08/20 04:00 97.6 89 17 134/71 (92) 99 01/08/20 04:00 40 01/08/20 04:00 86 01/08/20 02:51 93 19 40 01/08/20 01:11 92 18 40 01/08/20 00:00 97.5 89 18 131/64 (86) 100 01/07/20 23:28 84 01/07/20 23:16 95 19 40 01/07/20 21:15 94 18 40 01/07/20 21:00 Mechanical Ventilator 01/07/20 20:00 40 01/07/20 20:00 97.9 85 18 133/70 (91) 99 01/07/20 19:29 89 01/07/20 19:08 97 19 40 01/07/20 17:13 94 16 40 01/07/20 16:00 98 01/07/20 16:00 40 01/07/20 15:48 98.3 95 18 123/65 (84) 99 01/07/20 12:43 103 19 40 01/07/20 12:00 97.7 98 18 135/70 (91) 99 01/07/20 12:00 102 01/07/20 12:00 40 01/07/20 10:40 96 28 40 01/07/20 09:00 Mechanical Ventilator 01/07/20 08:51 97 23 40 01/07/20 08:00 40 01/07/20 08:00 97.7 98 18 120/72 (88) 99 Height (Feet): 5 Height (Inches): 8.00 Weight (Pounds): 168 Objective Gen: NAD. calm. HEEN: anicteric sclera. trached CV: no rubs or gallop Resp: tachypneic. coarse. no wheezes Abd: nondistended. soft. Microbiology Date/Time Source Procedure Growth Status 01/05/20 12:17 Nasopharynx Coronavirus COVID-19 PCR (KRISTEN) - Final Complete Laboratory Tests Test 01/08/20 00:15 01/08/20 04:30 Vancomycin Level Trough 14.0 ug/mL (5.0-12.0) H White Blood Count 16.0 K/UL (4.8-10.8) H Red Blood Count 2.91 M/UL (4.70-6.10) L Hemoglobin 8.8 G/DL (14.2-18.0) L Hematocrit 25.7 % (42.0-52.0) L Mean Corpuscular Volume 88 FL (80-99) Mean Corpuscular Hemoglobin 30.3 PG (27.0-31.0) Mean Corpuscular Hemoglobin Concent 34.4 G/DL (32.0-36.0) Red Cell Distribution Width 12.8 % (11.6-14.8) Platelet Count 349 K/UL (150-450) Mean Platelet Volume 5.5 FL (6.5-10.1) L Neutrophils (%) (Auto) 77.1 % (45.0-75.0) H Lymphocytes (%) (Auto) 13.9 % (20.0-45.0) L Monocytes (%) (Auto) 6.6 % (1.0-10.0) Eosinophils (%) (Auto) 1.8 % (0.0-3.0) Basophils (%) (Auto) 0.6 % (0.0-2.0) Sodium Level 137 MMOL/L (136-145) Potassium Level 3.9 MMOL/L (3.5-5.1) Chloride Level 104 MMOL/L (98-107) Carbon Dioxide Level 26 MMOL/L (21-32) Anion Gap 7 mmol/L (5-15) Blood Urea Nitrogen 7 mg/dL (7-18) Creatinine 0.4 MG/DL (0.55-1.30) L Estimat Glomerular Filtration Rate > 60 mL/min (>60) Glucose Level 105 MG/DL (74-106) Calcium Level 9.6 MG/DL (8.5-10.1) Current Medications Medications (Trade) Dose Ordered Sig/Emmanuelle Route PRN Reason Start Time Stop Time Status Last Admin Dose Admin Acetaminophen (Tylenol) 500 mg Q6H PRN ORAL Mild Pain/Temp > 100.5 01/03/20 11:00 02/02/20 10:59 Clozapine (Clozaril) 200 mg DAILY ORAL 01/04/20 09:00 01/11/20 08:59 01/07/20 08:59 Ertapenem 1 gm/ Sodium Chloride 55 ml @ 110 mls/hr Q24H IVPB 01/07/20 15:00 01/12/20 14:59 01/07/20 15:45 Sodium Chloride 1,000 ml @ 50 mls/hr Q20H IV 01/04/20 08:00 02/03/20 07:59 01/07/20 01:42 Valproic Acid (Depakene) 250 mg DAILY GT 01/04/20 09:00 02/03/20 08:59 01/07/20 08:59 Vancomycin HCl (Vanco rx to dose) 1 ea DAILY PRN MISC Per rx protocol 01/04/20 16:30 02/03/20 16:29 Vancomycin/Sodium Chloride 275 ml @ 183.333 mls/hr Q8H IVPB 01/08/20 08:00 01/13/20 07:59 Frankie Bishop MD Jan 08, 2020 07:28
--- NOTE | 2020-01-08 07:41 | NUR ---
NURSE NOTES: Received report from Marlena SMITH. Pt in bed asleep. On vent with setting of [id number]%(peep 5), tolerating well with sating 99%. IV site in RFA 22G SL patent and asymptomatic. Bed in lowest position and locked. Side railsx3 up for safety. On condom cath patent and intact. Stage 2 pressure ulcer reported from previous shift nurse. Will continue to follow up with wound care nurse. Call light within easy reach. Sinus rhythm noted. Will continue to plan of care.
[2020-01-08 08:00] VITALS: BP 118/75
[2020-01-08] MEDS ORDERED: Vancomycin 1.25gm/NS Premix IVPB SCH (08:00)
[2020-01-08] MEDS: Valproic Acid 250mg/5ml Liquid GT SCH (08:21)
--- NOTE | 2020-01-08 09:01 | NUR ---
RADIOLOGY DEPT., CHEST X-RAY DONE.-P.DYE
--- NOTE | 2020-01-08 09:23 | Diagnostic Imaging Report ---
Indication: Shortness of breath Technique: One view of the chest Comparison: January 04, 2020 Findings: Again demonstrated is left basilar atelectasis or scarring. There is questionably some hazy opacity at the left lung base, although this may just be an artifact of different exposure technique and slightly different rotation. The right lung and bilateral pleural spaces are clear. The heart size is normal Impression: Suggestion of left basilar hazy infiltrate, new since 01/04/2020 if real. Otherwise little change management director 4 days
--- NOTE | 2020-01-08 10:23 | NUR ---
RD ASSESSMENT & RECOMMENDATIONS SEE CARE ACTIVITY FOR COMPLETE ASSESSMENT DAILY ESTIMATED NEEDS: Needs based on sepsis, critical care, wound 81.4kg abw 20-30 kcals/kg 4126-2446 total kcals 1.25-2 g protein/kg 101-163 g total protein 25-30 mL/kg 1182-2588 total fluid mLs NUTRITION DIAGNOSIS: * Swallowing difficulty r/t resp status as evidenced by pt is trach dep, PEG dep. * Increased kcal/prot/micronutrients needs r/t wound healing as evidenced by pt w/ partial thickness wound @ cleft of buttocks and non-blanching erythema @ BL heels. CURRENT TF: Jevity 1.2 @30 ml/hr x 24 hrs ENTERAL NUTRITION RECOMMENDATIONS: Rec to increase current TF to goal of JEVITY 1.2 @65ml/hr x24 hrs to provide 1560ml, 1872 kcal, 87g pro, 1259ml free H2O - Rec to INCREASE TF goal as able by 10ml/hr q4-6 hrs to goal of 65ml/hr x24 hrs - Add PROSOURCE BID to better meet est pro needs - Flush per MD/ HOB over 30 degrees ADDITIONAL RECOMMENDATIONS: 1) Monitor BG; need for formula change 2) CONSTRUCTION AND MAINTENANCE INSPECTOR eval prior to oral grat 3) Per SNF: HT- 5'10" and [id number]# 4) Wound healing: Add Vit C 250mg QD -> Imtiaz 1pkt BID once TF well tolerated @ goal 5) Monitor lytes, replete as needed .
--- NOTE | 2020-01-08 10:58 | Pulmonolgy Critical Care Note ---
Critical Care - Asmt/Plan Problems: (1) Sepsis (2) HCAP (healthcare-associated pneumonia) (3) Suspected COVID-19 virus infection (4) Chronic respiratory failure (5) Paraplegia (6) Feeding by G-tube Respiratory: monitor respiratory rate, adjust FIO2, CXR Cardiac: continue to monitor HR/BP Renal: F/U I&O Infectious Disease: check cultures, continue antibiotics, other - Ecoli in Sputum is MDR Gastrointestinal: continue feedings/current rate, hold feedings Endocrine: monitor blood sugar, check HgA1C Neurologic: PRN Morphine Affect: PRN ativan Prophylaxis: Heparin Time Spent (Minutes): 40 Notes Reviewed: assembly stock supervisor Discussed with: nurses, consultants, nurse outreach case managercommercial real estate sales manager - Objective Last 24 Hour Vital Signs Date Time Temp Pulse Resp B/P (MAP) Pulse Ox O2 Delivery O2 Flow Rate FiO2 01/08/20 09:16 85 16 40 01/08/20 09:00 Mechanical Ventilator 01/08/20 08:00 40 01/08/20 08:00 80 01/08/20 08:00 98.1 89 16 118/75 (89) 100 01/08/20 07:18 81 16 40 01/08/20 05:15 96 18 40 01/08/20 04:00 97.6 89 17 134/71 (92) 99 01/08/20 04:00 40 01/08/20 04:00 86 01/08/20 02:51 93 19 40 01/08/20 01:11 92 18 40 01/08/20 00:00 97.5 89 18 131/64 (86) 100 01/07/20 23:28 84 01/07/20 23:16 95 19 40 01/07/20 21:15 94 18 40 01/07/20 21:00 Mechanical Ventilator 01/07/20 20:00 40 01/07/20 20:00 97.9 85 18 133/70 (91) 99 01/07/20 19:29 89 01/07/20 19:08 97 19 40 01/07/20 17:13 94 16 40 01/07/20 16:00 98 01/07/20 16:00 40 01/07/20 15:48 98.3 95 18 123/65 (84) 99 01/07/20 12:43 103 19 40 01/07/20 12:00 97.7 98 18 135/70 (91) 99 01/07/20 12:00 102 01/07/20 12:00 40 Status: awake Condition: critical HEENT: atraumatic, normocephalic Neck: trach Lungs: rales, rhonchi Heart: HR/BP stable Abdomen: soft, non-tender Extremities: no C/C/E Micro: Microbiology Date/Time Source Procedure Growth Status 01/05/20 12:17 Nasopharynx Coronavirus COVID-19 PCR (KRISTEN) - Final Complete Critical Care - Subjective ROS Limited/Unobtainable: No Condition: critical IV Access: PICC FI02: 40 Vent Support Breath Rate: 16 Vent Support Mode: AC Vent Tidal Volume: 600 Sputum Amount: Moderate PEEP: 5.0 PIP: 32 Tube Feeding Amount: 30 I&O: Intake and Output 01/07/20 01/08/20 19:00 07:00 Intake Total 80 ml 430 ml Output Total 800 ml Balance 80 ml -370 ml Free Water 50 ml 100 ml Tube Feeding 30 ml 330 ml Output Urine Total 800 ml CXR: Suggestion of left basilar hazy infiltrate, new since 01/04/2020 Labs: Laboratory Tests Test 01/08/20 00:15 01/08/20 04:30 Vancomycin Level Trough 14.0 ug/mL (5.0-12.0) H White Blood Count 16.0 K/UL (4.8-10.8) H Red Blood Count 2.91 M/UL (4.70-6.10) L Hemoglobin 8.8 G/DL (14.2-18.0) L Hematocrit 25.7 % (42.0-52.0) L Mean Corpuscular Volume 88 FL (80-99) Mean Corpuscular Hemoglobin 30.3 PG (27.0-31.0) Mean Corpuscular Hemoglobin Concent 34.4 G/DL (32.0-36.0) Red Cell Distribution Width 12.8 % (11.6-14.8) Platelet Count 349 K/UL (150-450) Mean Platelet Volume 5.5 FL (6.5-10.1) L Neutrophils (%) (Auto) 77.1 % (45.0-75.0) H Lymphocytes (%) (Auto) 13.9 % (20.0-45.0) L Monocytes (%) (Auto) 6.6 % (1.0-10.0) Eosinophils (%) (Auto) 1.8 % (0.0-3.0) Basophils (%) (Auto) 0.6 % (0.0-2.0) Sodium Level 137 MMOL/L (136-145) Potassium Level 3.9 MMOL/L (3.5-5.1) Chloride Level 104 MMOL/L (98-107) Carbon Dioxide Level 26 MMOL/L (21-32) Anion Gap 7 mmol/L (5-15) Blood Urea Nitrogen 7 mg/dL (7-18) Creatinine 0.4 MG/DL (0.55-1.30) L Estimat Glomerular Filtration Rate > 60 mL/min (>60) Glucose Level 105 MG/DL (74-106) Calcium Level 9.6 MG/DL (8.5-10.1) Pola Goode MD Jan 08, 2020 10:58
[2020-01-08 11:39] VITALS: BP 122/53
--- NOTE | 2020-01-08 12:36 | NUR ---
*-* INSURANCE *-* [facility] LISAM:MARICEL REF# [id number] P: [phone] EXT. [id number] F: [phone] [facility] [phone]
[2020-01-08] MEDS: Meropenem 1 GM in NS 55 ML IVPB SCH ×2 (13:50→22:06)
--- NOTE | 2020-01-08 14:56 | NUR ---
SCIENTIFIC DIRECTOR VOICE/COGNITIVE COMMUNICATIVE EVALUATION SCIENTIFIC DIRECTOR ORDERS RECEIVED AND ACKNOWLEDGED FOR PASSY NOA SPEAKING VALVE (PMV) EVALUATION. PT SEEN AT BEDSIDE, ALERT, MOUTHING WORDS AT SCIENTIFIC DIRECTOR, ABLE TO SUSTAIN ALERTNESS FOR ENTIRE SESSION. RESPIRATORY STATUS: PT HAS CUFFED TRACH TO VENT; VENT SETTINGS: A/C: 16 TIDAL VOLUME: 600, PEEP:6, FI02: 40% IMPRESSIONS: APHONIA DUE TO TRACH/VENT H/O COG COMM DEFICITS COMPOUNDED BY PSYCH DX PT W/ ONGOING COPIOUS TRACHEAL SECRETIONS, OBSERVED SURROUNDING STOMA SITE AND ON PT'S CHEST, THEREFORE, UNABLE TO COMPLETE PMV TRIALS/TRAINING DUE TO COPIOUS SECRETIONS. ALTERNATIVE COMMUNICATION TRIALS: PT UNABLE TO WRITE FOR COMMUNICATION DUE TO ARTHRITIS IN RIGHT (DOMINATE) HAND. PT HAS COMMUNICATION BOARD AT BEDSIDE WHICH PT WAS ABLE TO SPELL OUT WORDS VIA FINGER POINTING PT IS ABLE TO COMMUNICATE WANTS AND NEEDS VIA POINTING TO BOARD, MOUTH WORDS, AND HEAD NODS SCIENTIFIC DIRECTOR EDUCATED PT ON PMV FUNCTION, PURPOSE, AND SCIENTIFIC DIRECTOR POC COG COMM AND VOICE MANAGEMENT AND TX SCIENTIFIC DIRECTOR PLANS TO F/U W/ PT NEXT THERAPEUTIC DAY, PENDING ON SCIENTIFIC DIRECTOR'S AVAILABILITY, FOR PMV TRIALS/TRAINING, FURTHER COGNITIVE COMMUNICATIVE EVALUATION FORMAL REPORT TO FOLLOW.
[2020-01-08 15:14] VITALS: BP 133/75
--- NOTE | 2020-01-08 17:22 | NUR ---
CASE MANAGEMENT:REVIEW SI;SEPSIS. PNA. RESPIRATORY FAILURE TRACH/VENT COVID-19 ~ NOT DETECTED 97.5 91 16 133/75 100% TRACH VENT AC 16 TV 600 PEEP 5.0 FIO2@ 40% IS;MEROPENEM IV Q8 HRS VANCOMYCIN IV Q8 HRS DEPAKENE GT QD IVF NS @ 50 ML/HR HECTOR STATUS DCP;FROM [facility]
[2020-01-08 20:00] VITALS: BP 139/83
--- NOTE | 2020-01-08 22:30 | Progress Note ---
DATE: 01/08/2020 SUBJECTIVE: The patient is afebrile and hemodynamically stable. PHYSICAL EXAMINATION: VITAL SIGNS: Blood pressure 133/75, his pulse is 84, respirations are 16, and temperature 97.5. HEENT: Eyes were normal. ENT, mucous membranes were moist and intact. NECK: Supple with no JVD without lymph nodes. Tracheostomy site is clean. LUNGS: Clear without rhonchi, rales, or wheezing. HEART: Heart is normal sounds with regular beat. ABDOMEN: Soft and nontender with normal bowel sounds. EXTREMITIES: Warm without cyanosis, clubbing, or edema. LABORATORY AND DIAGNOSTIC DATA: Hemoglobin is 8.8, hematocrit 25.7 with MCV of 88, WBC of 16.0 and platelets of 349. His WBC was 28,000 yesterday. His BUN and creatinine is 7 and 0.4 respectively. His sodium is 137, potassium 3.9, chloride 104, CO2 is 26. His chest x-ray showed left lower lobe pneumonia, which might be an infiltrate or might be haziness. The patient clinically markedly improved. IMPRESSION: The patient clinically is improved and diagnostically is improved. Chest x-ray showed left lower lobe infiltrate. The patient is on vancomycin, ertapenem and . The patient now on meropenem 1 g IV piggyback q.8. Repeat laboratory tests will be done in a.m. Cheryl Pereira M.D. DR: Tess JOB#: [id number] CC:
--- NOTE | 2020-01-08 23:15 | NUR ---
NURSE NOTES: Received report from SARAH Ortiz. Pt asleep. Easily awakened. Oriented X3-4 Respirations even and unlabored. No distress noted. Denies pain. On vent with setting at AC-16/600/40%/peep-5, tolerating well with saturating 98%. IV site in RFA 22G SL patent and asymptomatic. Bed in lowest position and locked. Bed alarm engaged. Side rails up X3 up. Condom cath in place, patent/draining well. Call light within easy reach. Sinus rhythm on monitor and storage bin tender. Will continue POC
--- NOTE | 2020-01-08 23:31 | NUR ---
HAND-OFF: Report given to martir campbell.
[2020-01-09] VITALS: BP 141/87
[2020-01-09 04:00] VITALS: BP 126/76
--- NOTE | 2020-01-09 04:00 | NUR ---
NURSE NOTES: Awake. Oriented X3-4 Respirations even and unlabored. No distress noted. Denies pain. On trach to vent saturating 98%. IV site in RFA 22G SL patent and asymptomatic. Bed in lowest position and locked. Bed alarm engaged. Side rails up X3 up. Condom cath in place, patent/draining well. Call light within easy reach. Remain sinus rhythm on bus monitor. Will continue POC
[2020-01-09] MEDS: Meropenem 1 GM in NS 55 ML IVPB SCH ×2 (05:33→14:53)
[2020-01-09 05:44] LABS: BASOPHILS % (AUTO) 0.9 % (0.0-2.0); EOSINOPHILS % (AUTO) 1.7 % (0.0-3.0); HEMATOCRIT 26.3 % (42.0-52.0); HEMOGLOBIN 9.1 G/DL (14.2-18.0); MEAN CORPUSCULAR VOLUME 88 FL (80-99); MONOCYTES % (AUTO) 5.5 % (1.0-10.0); NEUTROPHILS % (AUTO) 74.9 % (45.0-75.0); PLATELET COUNT 431 K/UL (150-450); RED BLOOD COUNT 2.98 M/UL (4.70-6.10); RED CELL DISTRIBUTION WIDTH 12.6 % (11.6-14.8); WHITE BLOOD COUNT 14.5 K/UL (4.8-10.8)
[2020-01-09 06:01] LABS: ANION GAP 7 mmol/L (5-15); BLOOD UREA NITROGEN 8 mg/dL (7-18); CALCIUM 9.8 MG/DL (8.5-10.1); CARBON DIOXIDE 28 MMOL/L (21-32); CHLORIDE 105 MMOL/L (98-107); CREATININE 0.5 MG/DL (0.55-1.30); POTASSIUM 3.9 MMOL/L (3.5-5.1); SODIUM 140 MMOL/L (136-145)
--- NOTE | 2020-01-09 07:30 | NUR ---
HAND-OFF: Report given to Karlos Dumont RN.
--- NOTE | 2020-01-09 07:30 | NUR ---
NURSE NOTES: Received report from Barry SMITH. Pt in bed awake in bed, able to follow make needs known, non-verbal. IV site in right hand 22G SL, RFA 20G running with NS 50ml/hr patent and asymptomatic. sinus rhythm on bus driver/monitor. On vent setting with [id number] 40%, peep 5. Trach portex 8 intact and patent. On G-tube feeding with Jevity 1.2 @30ml/hr patent and asymptomatic. On condom cath patent and asymptomatic. Bed in lowest position and locked. Call light within easy reach. Side railx3 up for safety. Will continue to plan of care.
--- NOTE | 2020-01-09 07:36 | Infectious Diseases Prog Note ---
Assessment/Plan Assessment/Plan 59-year-old male with: 1. Sepsis, improving 2. Pneumonia. sp cx: ESBL E coli MRSA screen pos 3. Fever, Sp 4. Leukocytosis, improving 5. Less likely COVID-19. SARS-CoV PCR neg x2 6. Probable urinary tract infection. UCx: VRE(ampicillin sensitive) Paraplegia Trach VDRF G tube Psychosis [facility] resident PLAN: Meropenem #2/10 01/07 DC Ertapenem #2 and Vanc #5. 01/06 SP cefepime and levaquin #4 2. Monitor CBC. 3. Monitor BMP. 4. Monitor cultures (blood, urine, sputum). 5. Monitor chest x-ray. DC COVID isolation DW RN Subjective Allergies: Coded Allergies: No Known Allergies (Unverified , 01/03/20) Subjective Afebrile. FiO2 40% WBC improved is thirsty no sob Objective Vital Signs Last 24 Hour Vital Signs Date Time Temp Pulse Resp B/P (MAP) Pulse Ox O2 Delivery O2 Flow Rate FiO2 01/09/20 07:18 81 18 40 01/09/20 05:21 84 19 40 01/09/20 03:36 86 01/09/20 03:29 85 22 40 01/09/20 01:19 89 18 40 01/09/20 00:00 97.6 88 17 141/87 (105) 99 01/08/20 23:37 85 20 40 01/08/20 23:25 81 01/08/20 21:26 82 18 40 01/08/20 21:00 Mechanical Ventilator 01/08/20 20:00 97.7 83 17 139/83 (101) 100 01/08/20 20:00 85 01/08/20 20:00 40 01/08/20 19:10 84 16 40 01/08/20 17:15 85 18 40 01/08/20 16:00 40 01/08/20 16:00 86 01/08/20 15:14 97.5 84 16 133/75 (94) 100 01/08/20 14:33 83 16 40 01/08/20 13:00 91 16 40 01/08/20 12:00 40 01/08/20 12:00 88 01/08/20 11:39 97.5 89 16 122/53 (76) 100 01/08/20 11:20 86 16 40 01/08/20 09:16 85 16 40 01/08/20 09:00 Mechanical Ventilator 01/08/20 08:00 40 01/08/20 08:00 80 01/08/20 08:00 98.1 89 16 118/75 (89) 100 Height (Feet): 5 Height (Inches): 8.00 Weight (Pounds): 168 Objective Gen: NAD. calm. HEEN: anicteric sclera. trached CV: no rubs or gallop Resp: tachypneic. coarse. no wheezes Abd: nondistended. soft. Laboratory Tests Test 01/09/20 04:35 White Blood Count 14.5 K/UL (4.8-10.8) H Red Blood Count 2.98 M/UL (4.70-6.10) L Hemoglobin 9.1 G/DL (14.2-18.0) L Hematocrit 26.3 % (42.0-52.0) L Mean Corpuscular Volume 88 FL (80-99) Mean Corpuscular Hemoglobin 30.7 PG (27.0-31.0) Mean Corpuscular Hemoglobin Concent 34.8 G/DL (32.0-36.0) Red Cell Distribution Width 12.6 % (11.6-14.8) Platelet Count 431 K/UL (150-450) Mean Platelet Volume 5.6 FL (6.5-10.1) L Neutrophils (%) (Auto) 74.9 % (45.0-75.0) Lymphocytes (%) (Auto) 17.0 % (20.0-45.0) L Monocytes (%) (Auto) 5.5 % (1.0-10.0) Eosinophils (%) (Auto) 1.7 % (0.0-3.0) Basophils (%) (Auto) 0.9 % (0.0-2.0) Sodium Level 140 MMOL/L (136-145) Potassium Level 3.9 MMOL/L (3.5-5.1) Chloride Level 105 MMOL/L (98-107) Carbon Dioxide Level 28 MMOL/L (21-32) Anion Gap 7 mmol/L (5-15) Blood Urea Nitrogen 8 mg/dL (7-18) Creatinine 0.5 MG/DL (0.55-1.30) L Estimat Glomerular Filtration Rate > 60 mL/min (>60) Glucose Level 98 MG/DL (74-106) Calcium Level 9.8 MG/DL (8.5-10.1) Current Medications Medications (Trade) Dose Ordered Sig/Emmanuelle Route PRN Reason Start Time Stop Time Status Last Admin Dose Admin Acetaminophen (Tylenol) 500 mg Q6H PRN ORAL Mild Pain/Temp > 100.5 01/03/20 11:00 02/02/20 10:59 Clozapine (Clozaril) 200 mg DAILY ORAL 01/04/20 09:00 01/11/20 08:59 01/08/20 08:21 Meropenem 1 gm/ Sodium Chloride 55 ml @ 110 mls/hr Q8HR IVPB 01/08/20 14:00 01/13/20 13:59 01/09/20 05:33 Sodium Chloride 1,000 ml @ 50 mls/hr Q20H IV 01/04/20 08:00 02/03/20 07:59 01/08/20 11:28 Valproic Acid (Depakene) 250 mg DAILY GT 01/04/20 09:00 02/03/20 08:59 01/08/20 08:21 Frankie Bishop MD Jan 09, 2020 07:36
[2020-01-09 08:00] VITALS: BP 121/71
[2020-01-09] MEDS: Valproic Acid 250mg/5ml Liquid GT SCH (08:23)
--- NOTE | 2020-01-09 09:32 | General Progress Note ---
Assessment/Plan Status Narrative # Anemia of chronic disease due to underlying chronic medical issues, multifactorial v Gi bleed --> Anemia workup has been ordered, rule out gi bleed --> No evidence of hemolysis is noted, peripheral smear has been reviewed. --> Hgb goal >7. Transfuse prn. --> Epogen or iron at this time is not particularly indicated --> Medications have been reviewed --> low threshold for gi evaluation in case has occult + # Leukocytosis/elevated white blood cell count, unspecified likely related to underlying stress reaction, smoking v more likely infection/sepsis --> have reviewed peripheral smear and bandemia/neutrophilia noted --> continue antibiotics if they have been started by ID team --> monitor for resolution --> on abx is on meropenem --> covid 19 negative # Sepsis, improving --> as per id # Pneumonia. # Paraplegia # Trach / VDRF # G tube # Psychosis # [facility] resident The timing of this note does not necessarily reflect the time of the patient was seen. Greatly appreciate consultation. Subjective Allergies: Coded Allergies: No Known Allergies (Unverified , 01/03/20) All Systems: reviewed and negative except above Subjective Covering for Dr. Pereira 01/08 no major events, dw Rn, no bleeding, on vent and trach, on gtube feeds, patient says he is thirsty with letter chart Objective Last 24 Hour Vital Signs Date Time Temp Pulse Resp B/P (MAP) Pulse Ox O2 Delivery O2 Flow Rate FiO2 01/09/20 08:00 97.7 80 20 121/71 (88) 100 01/09/20 08:00 40 01/09/20 08:00 80 01/09/20 07:18 81 18 40 01/09/20 05:21 84 19 40 01/09/20 04:00 98.1 83 17 126/76 (93) 99 01/09/20 04:00 40 01/09/20 03:36 86 01/09/20 03:29 85 22 40 01/09/20 01:19 89 18 40 01/09/20 00:00 97.6 88 17 141/87 (105) 99 01/08/20 23:37 85 20 40 01/08/20 23:25 81 01/08/20 21:26 82 18 40 01/08/20 21:00 Mechanical Ventilator 01/08/20 20:00 97.7 83 17 139/83 (101) 100 01/08/20 20:00 85 01/08/20 20:00 40 01/08/20 19:10 84 16 40 01/08/20 17:15 85 18 40 01/08/20 16:00 40 01/08/20 16:00 86 01/08/20 15:14 97.5 84 16 133/75 (94) 100 01/08/20 14:33 83 16 40 01/08/20 13:00 91 16 40 01/08/20 12:00 40 01/08/20 12:00 88 01/08/20 11:39 97.5 89 16 122/53 (76) 100 01/08/20 11:20 86 16 40 Intake and Output 01/08/20 01/09/20 19:00 07:00 Intake Total 900 ml 1135 ml Output Total 1300 ml 1400 ml Balance -400 ml -265 ml Free Water 80 ml 40 ml IV Total 460 ml 765 ml Tube Feeding 360 ml 330 ml Output Urine Total 1300 ml 1400 ml Laboratory Tests 01/09/20 04:35: White Blood Count 14.5H, Red Blood Count 2.98L, Hemoglobin 9.1L, Hematocrit 26.3L, Mean Corpuscular Volume 88, Mean Corpuscular Hemoglobin 30.7, Mean Corpuscular Hemoglobin Concent 34.8, Red Cell Distribution Width 12.6, Platelet Count 431, Mean Platelet Volume 5.6L, Neutrophils (%) (Auto) 74.9, Lymphocytes ( %) (Auto) 17.0L, Monocytes (%) (Auto) 5.5, Eosinophils (%) (Auto) 1.7, Basophils (%) (Auto) 0.9, Sodium Level 140, Potassium Level 3.9, Chloride Level 105, Carbon Dioxide Level 28, Anion Gap 7, Blood Urea Nitrogen 8, Creatinine 0.5L, Estimat Glomerular Filtration Rate > 60, Glucose Level 98, Calcium Level 9.8 Height (Feet): 5 Height (Inches): 8.00 Weight (Pounds): 168 Objective PHYSICAL EXAMINATION: VITAL SIGNS: have been reviewed, no f/c HEENT: Eyes were normal. ENT, mucous membranes were moist and intact. NECK: Supple with no JVD without lymph nodes. Tracheostomy site is clean. LUNGS: Clear without rhonchi, rales, or wheezing. HEART: Normal sounds with regular beats. His tachyardia better ABDOMEN: Soft, nontender with normal bowel sounds. Gastrostomy site is clean. EXTREMITIES: Warm without cyanosis, clubbing, or edema. NEURO: alert and oriented Saul Chávez MD Jan 09, 2020 09:32
--- NOTE | 2020-01-09 10:40 | NUR ---
NURSE NOTES: Tube feeding increased to 40 ml/hr now and will increase to 65ml/hr as RD recommended
[2020-01-09 10:51] LABS: % IRON SATURATION 19 % (15-50); IRON 27 ug/dL (50-175); TOTAL IRON BINDING CAPACITY 144 ug/dL (250-450)
[2020-01-09 11:09] LABS: FERRITIN 659 NG/ML (8-388)
--- NOTE | 2020-01-09 11:25 | Pulmonolgy Critical Care Note ---
Critical Care - Asmt/Plan Problems: (1) Sepsis (2) HCAP (healthcare-associated pneumonia) (3) Suspected COVID-19 virus infection (4) Chronic respiratory failure (5) Paraplegia (6) Feeding by G-tube Respiratory: monitor respiratory rate, adjust FIO2, CXR Cardiac: start pressors, continue pressors Infectious Disease: check cultures Gastrointestinal: continue feedings/current rate, hold feedings Hematologic: monitor H/H Neurologic: PRN Ativan Notes Reviewed: special procedures tech, renal, ID Critical Care - Objective Last 24 Hour Vital Signs Date Time Temp Pulse Resp B/P (MAP) Pulse Ox O2 Delivery O2 Flow Rate FiO2 01/09/20 09:00 Mechanical Ventilator 01/09/20 08:51 84 16 40 01/09/20 08:00 97.7 80 20 121/71 (88) 100 01/09/20 08:00 40 01/09/20 08:00 80 01/09/20 07:18 81 18 40 01/09/20 05:21 84 19 40 01/09/20 04:00 98.1 83 17 126/76 (93) 99 01/09/20 04:00 40 01/09/20 03:36 86 01/09/20 03:29 85 22 40 01/09/20 01:19 89 18 40 01/09/20 00:00 97.6 88 17 141/87 (105) 99 01/08/20 23:37 85 20 40 01/08/20 23:25 81 01/08/20 21:26 82 18 40 01/08/20 21:00 Mechanical Ventilator 01/08/20 20:00 97.7 83 17 139/83 (101) 100 01/08/20 20:00 85 01/08/20 20:00 40 01/08/20 19:10 84 16 40 01/08/20 17:15 85 18 40 01/08/20 16:00 40 01/08/20 16:00 86 01/08/20 15:14 97.5 84 16 133/75 (94) 100 01/08/20 14:33 83 16 40 01/08/20 13:00 91 16 40 01/08/20 12:00 40 01/08/20 12:00 88 01/08/20 11:39 97.5 89 16 122/53 (76) 100 Status: awake Condition: grave HEENT: atraumatic Lungs: chest wall tender Heart: HR/BP unstable Abdomen: non-tender Extremities: no C/C/E Decubiti: location Critical Care - Subjective ROS Limited/Unobtainable: Yes FI02: 40 Vent Support Breath Rate: 16 Vent Support Mode: AC Vent Tidal Volume: 600 Sputum Amount: Moderate PEEP: 5.0 PIP: 24 Tube Feeding Amount: 30 I&O: Intake and Output 01/08/20 01/09/20 19:00 07:00 Intake Total 900 ml 1135 ml Output Total 1300 ml 1400 ml Balance -400 ml -265 ml Free Water 80 ml 40 ml IV Total 460 ml 765 ml Tube Feeding 360 ml 330 ml Output Urine Total 1300 ml 1400 ml Labs: Laboratory Tests Test 01/09/20 04:35 01/09/20 04:38 White Blood Count 14.5 K/UL (4.8-10.8) H Red Blood Count 2.98 M/UL (4.70-6.10) L Hemoglobin 9.1 G/DL (14.2-18.0) L Hematocrit 26.3 % (42.0-52.0) L Mean Corpuscular Volume 88 FL (80-99) Mean Corpuscular Hemoglobin 30.7 PG (27.0-31.0) Mean Corpuscular Hemoglobin Concent 34.8 G/DL (32.0-36.0) Red Cell Distribution Width 12.6 % (11.6-14.8) Platelet Count 431 K/UL (150-450) Mean Platelet Volume 5.6 FL (6.5-10.1) L Neutrophils (%) (Auto) 74.9 % (45.0-75.0) Lymphocytes (%) (Auto) 17.0 % (20.0-45.0) L Monocytes (%) (Auto) 5.5 % (1.0-10.0) Eosinophils (%) (Auto) 1.7 % (0.0-3.0) Basophils (%) (Auto) 0.9 % (0.0-2.0) Sodium Level 140 MMOL/L (136-145) Potassium Level 3.9 MMOL/L (3.5-5.1) Chloride Level 105 MMOL/L (98-107) Carbon Dioxide Level 28 MMOL/L (21-32) Anion Gap 7 mmol/L (5-15) Blood Urea Nitrogen 8 mg/dL (7-18) Creatinine 0.5 MG/DL (0.55-1.30) L Estimat Glomerular Filtration Rate > 60 mL/min (>60) Glucose Level 98 MG/DL (74-106) Calcium Level 9.8 MG/DL (8.5-10.1) Iron Level 27 ug/dL (50-175) L Total Iron Binding Capacity 144 ug/dL (250-450) L Percent Iron Saturation 19 % (15-50) Unsaturated Iron Binding 117 ug/dL (112-346) Ferritin 659 NG/ML (8-388) H Pola Goode MD Jan 09, 2020 11:25
[2020-01-09 11:43] VITALS: BP 126/75
--- NOTE | 2020-01-09 11:47 | NUR ---
NURSE NOTES: Tube feeding increased to 50ml/hr, pt tolerating well with current rate of feeding. 5cc residual noted.
--- NOTE | 2020-01-09 11:55 | NUR ---
ST NOTES: SWALLOW/SPEECH STATUS: PER RN, MIN, THE PATIENT WANTS TO EAT/DRINK BY MOUTH NOT JUST GET NUTRITION/HYDRATION VIA PEG. PER RTBERNARDO, THE PATIENT STILL HAS COPIOUS SECRETIONS THAT NEEDED TO BE SUCTIONED FROM HIS TRACH. PATIENT ALSO NEEDS SOME MILD ORAL SUCTION AT TIMES. SINCE THE PATIENT HAS A RISK OF WORSENED/PERSISTENT DYSPHAGIA AND SILENT ASPIRATION DUE TO TRACH/VENT RESPIRATORY PROBLEMS AND RECENT CVA. PATIENT UNABLE TO GO DOWN FOR MODIFIED BARIUM SWALLOW STUDY AN IP DUE TO NO PORTABLE VENT AT THIS TIME. PATIENT ALSO HAS COPIOUS SECRETIONS. THE PATIENT IS NOT READY FOR PASSY NOA SPEAKING VALVE TRIALS AT THIS TIME. WILL WAIT FOR TRACHEAL SECRETIONS TO REDUCED TO MILD-MOD LEVEL. HE IS ABLE TO COMMUNICATE BASIC NEEDS BY MOUTHING OR USING WORD/ALPHABET BOARD. EDUCATED STAFF (RN, MIN) IN COMMUNICATION TIPS AND ORAL CARE NEEDS AND ASP PRECAUTIONS WITH PEG FEEDINGS RUNNING. PLAN: CONSIDER MOD BARIUM SWALLOW STUDY AN OP AT ANOTHER FACILITY (NO OP MBSS AT [facility] AT THIS TIME). CONTINUE WITH NO PO AT THIS TIME. CONTINUE WITH ORAL CARE AND ASPIRATION PRECAUTIONS WHEN PEG FEEDINGS ARE RUNNING. SEE PLAN OF CARE FOR COMMUNICATION MANAGEMENT AND TX IN SPEECH/VOICE/LANGUAGE EVALUATION REPORT. Addendum: 01/09/20 at 1557 by ABBY LOCKE DIRECTOR TELEMETRY DISCHARGE SWALLOW/SPEECH THERAPY SUMMARY: PATIENT SEEN FOR DYSPHAGIA SEE FULL SWALLOW AND SPEECH/VOICE EVALUATION REPORTS. PER RN, MIN, THE PATIENT WANTS TO EAT/DRINK BY MOUTH NOT JUST GET NUTRITION/HYDRATION VIA PEG. PER RTBERNARDO, THE PATIENT STILL HAS COPIOUS SECRETIONS THAT NEEDED TO BE SUCTIONED FROM HIS TRACH. PATIENT ALSO NEEDS SOME MILD ORAL SUCTION AT TIMES. SINCE THE PATIENT HAS A RISK OF WORSENED/PERSISTENT DYSPHAGIA AND SILENT ASPIRATION DUE TO TRACH/VENT RESPIRATORY PROBLEMS AND RECENT CVA. PATIENT UNABLE TO GO DOWN FOR MODIFIED BARIUM SWALLOW STUDY AN IP DUE TO NO PORTABLE VENT AT THIS TIME. PATIENT ALSO HAS COPIOUS SECRETIONS. THE PATIENT IS NOT READY FOR PASSY NOA SPEAKING VALVE TRIALS AT THIS TIME. WILL WAIT FOR TRACHEAL SECRETIONS TO REDUCED TO MILD-MOD LEVEL. HE IS ABLE TO COMMUNICATE BASIC NEEDS BY MOUTHING OR USING WORD/ALPHABET BOARD. EDUCATED STAFF (RN, MIN) IN COMMUNICATION TIPS AND ORAL CARE NEEDS AND ASP PRECAUTIONS WITH PEG FEEDINGS RUNNING. PLAN: CONSIDER MOD BARIUM SWALLOW STUDY AN OP AT ANOTHER FACILITY (NO OP MBSS AT [facility] AT THIS TIME). CONTINUE WITH NO PO AT THIS TIME. CONTINUE WITH ORAL CARE AND ASPIRATION PRECAUTIONS WHEN PEG FEEDINGS ARE RUNNING. SEE PLAN OF CARE FOR COMMUNICATION MANAGEMENT AND TX IN SPEECH/VOICE/LANGUAGE EVALUATION REPORT. F/UP WITH DIRECTOR TELEMETRY AT [facility]
--- NOTE | 2020-01-09 12:28 | NUR ---
CASE MANAGEMENT: REVIEW 01/09/2020 SI:SEPSIS. PNA. T 99 HR 96 RR 20 B/P 126/75 SATS 99% ON MECH VENT FIO2 40 LABS: WBC 14.5 CR 0.5 IS:NS @ 50 ML/HR CLOZARIL PO QD DEPAKENE GT QD MEROPENEM IV Q8H SDU
--- NOTE | 2020-01-09 12:30 | NUR ---
INSURANCE PROGRESS NOTES AND REVIEW FAXED TO [facility] KARINE:MARICEL REF# [id number] P: [phone] EXT. [id number] F: [phone]
[2020-01-09] MEDS ORDERED: CLOZAPINE200 MG GT (13:44)
[2020-01-09] MEDS ORDERED: MEROPENEM1 GM IV (13:46)
--- NOTE | 2020-01-09 14:17 | NUR ---
DISCHARGE PLANNING: NOTE PATIENT TO BE DISCHARGED TO [place] [id number] [facility] [address] T: [phone]>> CALL FOR REPORT [facility] ETA 1534 DEPUTY GUARDIAN DENISE MADE AWARE OF THE DISCHARGE [phone]
[2020-01-09 16:00] VITALS: BP 123/78
[2020-01-09] MEDS ORDERED: Tubing IV Secondary IV ONE (18:54)
[2020-01-09] MEDS ORDERED: NS 275ml ONE (18:54)
--- NOTE | 2020-01-09 18:55 | NUR ---
Discharge: Patient is being discharged from medical care. Awake, alert and oriented x2 or 3, non-verbal. After care instructions, including referral to community resources were given. At this time patient does not request medications, equipment, pt discharges to [facility]. Report given to Laura SMITH at [facility]. Patient unable to sign patient consent in the medical record due to weakness. All medical devices such as bus driver/monitor, ID band were removed but IV on right forearm remained due to prolonged IV ABx at the facility for PNA. Patient picked up by [facility] via gurney. No belonging came with patient upon admission.
--- NOTE | 2020-01-10 11:35 | NUR ---
INSURANCE NO DISCHARGE SUMMARY IN THE SYSTEM UNABLE TO FAX
--- NOTE | 2020-01-11 16:20 | Discharge Summary ---
Discharge Summary Discharge Summary _ DATE OF ADMISSION: 01/03/2020 DATE OF DISCHARGE: 01/09/2020 DISCHARGED BY: Dr. Pereira REASON FOR ADMISSION: 59 years old male with past medical history of chronic respiratory failure, tracheostomy status, paraplegia, dysphagia, feeding by G-tube, presented from the [facility] facility due to fever and respiratory distress. Per paramedics patient was hypoxic and demonstrated respiratory distress. Patient had copious amount of secretions upon suctioning. After suctioning patient somewhat improved. No reported nausea, vomiting or diarrhea. Upon evaluation patient was febrile with temperature 101.8. Laboratory work-up revealed leukocytosis WBC 46.9, hemoglobin 11.2 , hematocrit 33.2, platelet count 542. Stable chemistry and renal parameters. Glucose 166. Troponin - 0.021. Lactic acid 1.7. Urinalysis revealed pyuria , +1 leukocyte esterase , +3 protein and few bacteria. Chest x-ray demonstrated minimal left basal atelectasis. Patient was pancultured and started on empiric antibiotic. Patient was tested for COVID 19 infection and admitted to direct observational unit isolation room. CONSULTANTS: pulmonary Dr. Goode ID specialist Dr. Murdock appraisal manager/oncologist Dr. Hickey [facility] COURSE: Patient admitted. Ventilator support and tracheostomy care provided. Pulmonary toilet provided. Patient started on empiric antibiotics. Patient was followed-up with chest x-ray, which revealed left basilar hazy infiltrate. Aspiration precaution maintained. G-tube feeding continued. Blood cultures were negative. COVID 19 was not detected. Influenza screen was negative. Sputum culture revealed E. coli ESBL. Urine culture revealed VRE with only 10-20 K. COVID 19 was repeated due to persistent leukocytosis and still was not detected. Antibiotic regimen further optimized as per ID specialist recommendation. Leukocytosis was trending down , and prior to discharge 14.5. Fevers resolved. Hemoglobin and hematocrit were closely monitored with goal to keep hemoglobin above 7. Anemia work-up was consistent with anemia of chronic disease. Ferritin 659. No evidence of hemolysis. Patient clinically stabilized and was ready for transfer back to [facility] facility for continuation of care FINAL DIAGNOSES: Sepsis Healthcare associated pneumonia with E coli ESBL Suspected COVID19 virus infection -ruled out Chronic respiratory failure , ventilator dependent with tracheostomy status Dysphagia , feeding by G-tube Paraplegia Anemia of chronic disease DISCHARGE MEDICATIONS: See Medication Reconciliation list. DISCHARGE INSTRUCTIONS: Patient was discharged to the [facility] facility. Follow up with medical doctor at the facility. I have been assigned to dictate discharge summary for this account. I was not involved in the patient's management. Pavithra Grace NP Jan 11, 2020 16:20
--- NOTE | 2020-01-13 14:47 | NUR ---
INSURANCE UPDATED CLINICALS HAVE BEEN FAXED TO: [facility] KARINE:MARICEL REF# [id number] P: [phone] EXT. [id number] F: [phone]
--- NOTE | 2020-01-13 14:48 | NUR ---
INSURANCE DISCHARGE SUMMARY HAS BEEN FAXED TO: [facility] KARINE:MARICEL REF# [id number] P: [phone] EXT. [id number] F: [phone]
== END 2020-01-09 18:55 | DRG 720 ==
LOC: EDBD 05:37 → EMR 05:48 → 2W 06:25 → EDBEDREQ 16:52
PROC: 5A1955Z Respiratory Ventilation, Greater than 96 Consecutive Hours (ICD-10-PCS; principal; 2020-01-03)
DX: A41.9 Sepsis, unspecified organism (principal); J18.9 Pneumonia, unspecified organism; G82.20 Paraplegia, unspecified; J96.10 Chronic respiratory failure, unspecified whether with hypoxia or hypercapnia; J15.5 Pneumonia due to Escherichia coli; Y95 Nosocomial condition; Z16.12 Extended spectrum beta lactamase (ESBL) resistance; R13.10 Dysphagia, unspecified; Z43.1 Encounter for attention to gastrostomy; D63.8 Anemia in other chronic diseases classified elsewhere; Z99.11 Dependence on respirator [ventilator] status; E87.6 Hypokalemia; Z43.0 Encounter for attention to tracheostomy; Z86.73 Personal history of transient ischemic attack (TIA), and cerebral infarction without residual deficits; B19.10 Unspecified viral hepatitis B without hepatic coma; Z87.891 Personal history of nicotine dependence
CPT/HCPCS: 36415; 71045; 80048; 80053; 80202; 81003; 82550; 82553; 82728; 83540; 83550; 83605; 83735; 83880; 84100; 84450; 84460; 84484; 85007; 85025; 85060; 85610; 85651; 85730; 86140; 86710; 87040; 87070; 87081; 87086; 87181; 87205; 87635; 92610; 93005; 94002; 94003; 96361; 96365; 96367; 99285; J7030; J8499